=== PATIENT | female | born 1990 | race Caucasian/White ===

== ENCOUNTER → 2017-09-23 19:00 | Outpatient (CLI) | payer BC, SELFPAY ==
[2017-11-03 15:45] LABS: HPV HC, High Risk Negative; HPV Reflexed? YES, CHARGE PATIENT
== END ==
PROVIDERS: Visit Provider Obstetrics & Gynecology
DX: Z12.4 Encounter for screening for malignant neoplasm of cervix (principal)
CPT/HCPCS: 87624; 88175; G0145

== ENCOUNTER → 2018-09-29 | Outpatient (CLI) | payer BC, SELFPAY ==
[2016-09-14 07:19] VITALS: BMI 32.1
[2018-10-07 11:16] LABS: HPV APTIMA, High Risk Negative (Negative)
[2018-10-07 11:51] LABS: HPV Reflexed? YES, CHARGE PATIENT
== END | disposition home or self-care (01) ==
LOC: LABSPEC 15:29
PROVIDERS: PCP Family Medicine; Visit Provider Obstetrics & Gynecology
DX: Z12.4 Encounter for screening for malignant neoplasm of cervix (principal)
CPT/HCPCS: 87624; 88175; G0145

== ENCOUNTER → 2018-10-20 | Outpatient (CLI) | payer BC, SELFPAY ==
--- NOTE | 2018-10-20 14:36 | BI_ITS ---
MAMMOGRAPHY - BILATERAL SCREENING 3-D TOMOSYNTHESIS REASON FOR EXAM: Female, 28 years old. Bilateral Screening 3-D tomosynthesis PERTINENT HISTORY: Family history of breast cancer in mother who at age 42. TECHNIQUE: 2-D mammograms and 3-D Tomosynthesis of the breast (s) were performed. CAD was performed. COMPARISON: None. Baseline examination. FINDINGS: The breast composition is heterogeneously dense that can obscure small breast masses. Scattered benign calcifications are seen. No dense spiculated masses or suspicious microcalcifications are identified. No architectural distortion is identified. There is no skin thickening or retraction. There has been no significant change since the prior study. BI/SCREEN MAMM (CAD) W/YARIEL BILAT IMPRESSION: No mammographic signs of malignancy. Routine yearly mammograms recommended. ASSESSMENT CATEGORY: BIRADS Category 1: Negative. A letter regarding these results will be sent to the patient by the facility within 30 days. FOLLOW UP RECOMMENDATION: Yearly follow up mammogram recommended. (A) Approximately 10% of breast cancers are not detected by mammography. A normal mammogram should not delay biopsy of a clinically suspicious abnormality. Electronically Signed: Jason Love MD at 17:07 EDT , Service support ,
== END | disposition home or self-care (01) ==
LOC: OPBI 14:31
PROVIDERS: Family Provider Family Medicine; PCP Family Medicine; Referring Provider Obstetrics & Gynecology; Visit Provider Obstetrics & Gynecology
DX: Z12.31 Encounter for screening mammogram for malignant neoplasm of breast (principal); Z80.3 Family history of malignant neoplasm of breast
CPT/HCPCS: 77063; 77067

== ENCOUNTER → 2019-10-23 | Outpatient (CLI) | payer BC, SELFPAY ==
--- NOTE | 2019-10-23 13:06 | BI_ITS ---
MAMMOGRAPHY - BILATERAL SCREENING REASON FOR EXAM: Female, 29 years old. Routine annual screening examination. PERTINENT HISTORY: Mother with breast cancer. Aunt with breast cancer. TECHNIQUE: Digital bilateral breast yariel (3D mammographic acquisition) in the CC and MLO projections. 2-D mediolateral oblique (MLO) and craniocaudad (CC) views of both breasts were obtained. CAD: Full Field Digital Mammography with Computer Added Detection was performed. COMPARISON: Comparison is made with prior study dated October 20, 2018. FINDINGS: Breast Composition: The breasts are extremely dense, which lowers the sensitivity of mammography. There are no dominant masses or suspicious calcifications. No other significant abnormalities are identified. There has been no significant change since the prior study. BI/SCREEN MAMM (CAD) W/YARIEL BILAT IMPRESSION: Stable bilateral screening mammogram. Yearly follow-up mammogram recommended. (A) ASSESSMENT CATEGORY: BIRADS Category 1: Negative. A letter regarding these results will be sent to the patient by the facility within 30 days. Approximately 10% of breast cancers are not detected by mammography. A normal mammogram should not delay biopsy of a clinically suspicious abnormality. [id number] Electronically Signed: Brigido Brooks, at 14:12 EDT , Service support ,
== END | disposition home or self-care (01) ==
LOC: OPBI 13:04
PROVIDERS: PCP Family Medicine; Referring Provider Obstetrics & Gynecology; Visit Provider Obstetrics & Gynecology
DX: Z12.31 Encounter for screening mammogram for malignant neoplasm of breast (principal); Z80.3 Family history of malignant neoplasm of breast
CPT/HCPCS: 77063; 77067

== ENCOUNTER → 2020-10-17 15:28 | Outpatient (CLI) | payer BC, SELFPAY ==
[2016-09-14 07:19] VITALS: BMI 32.1
[2020-10-24 14:39] LABS: HPV Reflexed? NOT INDICATED
== END ==
PROVIDERS: PCP Family Medicine; Visit Provider Obstetrics & Gynecology
DX: Z12.4 Encounter for screening for malignant neoplasm of cervix (principal)
CPT/HCPCS: 88175; G0145

== ENCOUNTER → 2020-11-18 12:30 | Outpatient (CLI) | payer BC, SELFPAY ==
--- NOTE | 2020-11-18 12:33 | BI_ITS ---
MAMMOGRAPHY - BILATERAL SCREENING REASON FOR EXAM: Female, 30 years old. Routine annual screening examination. PERTINENT HISTORY: Grandmother with breast cancer. TECHNIQUE: Digital bilateral breast yariel (3D mammographic acquisition) in the CC and MLO projections. 2-D mediolateral oblique (MLO) and craniocaudad (CC) views of both breasts were obtained. CAD: Full Field Digital Mammography with Computer Added Detection was performed. COMPARISON: Comparison is made with prior study dated 10/23/2019 and 10/20/2018. FINDINGS: Breast Composition: The breasts are extremely dense, which lowers the sensitivity of mammography. There are no dominant masses or suspicious calcifications. No other significant abnormalities are identified. There has been no significant change since the prior study. BI/SCRN MAMM (CAD)W/YARIEL BILAT IMPRESSION: Stable bilateral screening mammogram. Yearly follow-up mammogram recommended. (A) ASSESSMENT CATEGORY: BIRADS Category 1: Negative. A letter regarding these results will be sent to the patient by the facility within 30 days. Approximately 10% of breast cancers are not detected by mammography. A normal mammogram should not delay biopsy of a clinically suspicious abnormality. [id number] Electronically Signed: Brigido Brooks MD at 13:11 EDT , Service support ,
== END ==
PROVIDERS: PCP Family Medicine; Referring Provider Obstetrics & Gynecology; Visit Provider Obstetrics & Gynecology
DX: Z12.31 Encounter for screening mammogram for malignant neoplasm of breast (principal); Z80.3 Family history of malignant neoplasm of breast
CPT/HCPCS: 77063; 77067

== ENCOUNTER → 2021-11-19 | Outpatient (CLI) | payer BC, SELFPAY ==
--- NOTE | 2021-11-19 14:14 | BI_ITS ---
MAMMOGRAPHY - BILATERAL SCREENING REASON FOR EXAM: Female, 31 years old. Routine annual screening examination. PERTINENT HISTORY: Mother with breast cancer. TECHNIQUE: Digital bilateral breast yariel (3D mammographic acquisition) in the CC and MLO projections. 2-D mediolateral oblique (MLO) and craniocaudad (CC) views of both breasts were obtained. CAD: Full Field Digital Mammography with Computer Added Detection was performed. COMPARISON: Comparison is made with prior study 11/18/2020 and 10/23/2019. FINDINGS: Breast Composition: The breasts are extremely dense, which lowers the sensitivity of mammography. There are no dominant masses or suspicious calcifications. No other significant abnormalities are identified. There has been no significant change since the prior study. BI/SCRN MAMM (CAD)W/YARIEL BILAT IMPRESSION: Stable bilateral screening mammogram. Yearly follow-up mammogram recommended. (A) ASSESSMENT CATEGORY: BIRADS Category 1: Negative. A letter regarding these results will be sent to the patient by the facility within 30 days. Approximately 10% of breast cancers are not detected by mammography. A normal mammogram should not delay biopsy of a clinically suspicious abnormality. [id number] Electronically Signed: Brigido Brooks MD at 15:12 EDT ,
== END | disposition home or self-care (01) ==
LOC: OPBI 14:12
PROVIDERS: PCP Family Medicine; Visit Provider Obstetrics & Gynecology
DX: Z12.31 Encounter for screening mammogram for malignant neoplasm of breast (principal); Z80.3 Family history of malignant neoplasm of breast
CPT/HCPCS: 77063; 77067

== ENCOUNTER → 2022-10-22 | Outpatient (CLI) | payer BC, SELFPAY ==
[2022-10-22 12:52] LABS: Cholesterol 163 mg/dL (200); Creatinine, Serum 0.86 mg/dL (0.55-1.02); EST Glomerular Filtration Rate 80 mL/min (>60); Est Glom Filt Rate - Afr Amer 97 mL/min (>60); Ferritin 31 ng/mL (8-252); High Density Lipoprotein 84 mg/dL; Triglycerides 90 mg/dL; Very Low Density Lipoprotein 18 mg/dL (5-40)
== END | disposition home or self-care (01) ==
LOC: MFPLAB 10:21
PROVIDERS: PCP Family Medicine; Visit Provider Family Medicine
DX: G43.909 Migraine, unspecified, not intractable, without status migrainosus (principal); Z13.220 Encounter for screening for lipoid disorders
CPT/HCPCS: 36415; 80061; 82565; 82728

== ENCOUNTER → 2022-11-23 | Outpatient (CLI) | payer BC, SELFPAY ==
--- NOTE | 2022-11-23 07:51 | BI_ITS ---
MAMMOGRAPHY - BILATERAL SCREENING REASON FOR EXAM: Female, 32 years old. Routine annual screening examination. PERTINENT HISTORY: Mother with breast cancer. TECHNIQUE: Digital bilateral breast yariel (3D mammographic acquisition) in the CC and MLO projections. 2-D mediolateral oblique (MLO) and craniocaudad (CC) views of both breasts were obtained. CAD: Full Field Digital Mammography with Computer Added Detection was performed. COMPARISON: Comparison is made with prior study dated November 19, 2021 and November 18, 2020. FINDINGS: Breast Composition: The breasts are extremely dense, which lowers the sensitivity of mammography. There are no dominant masses or suspicious calcifications. No other significant abnormalities are identified. There has been no significant change since the prior study. BI/SCRN MAMM (CAD)W/YARIEL BILAT IMPRESSION: Stable bilateral screening mammogram. Yearly follow-up mammogram recommended. (A) ASSESSMENT CATEGORY: BIRADS Category 1: Negative. A letter regarding these results will be sent to the patient by the facility within 30 days. Approximately 10% of breast cancers are not detected by mammography. A normal mammogram should not delay biopsy of a clinically suspicious abnormality. [id number] Electronically Signed: Brigido Brooks MD at 9:38 EDT ,
== END | disposition home or self-care (01) ==
PROVIDERS: PCP Family Medicine; Referring Provider Family Medicine; Visit Provider Family Medicine
DX: Z12.31 Encounter for screening mammogram for malignant neoplasm of breast (principal)
CPT/HCPCS: 77063; 77067

== ENCOUNTER → 2023-07-14 | Outpatient (CLI) | payer BC, SELFPAY ==
--- NOTE | 2023-07-14 15:33 | US_ITS ---
STUDY: ULTRASOUND OF THE FEMALE PELVIS - COMPLETE REASON FOR EXAM: Female, 33 years old. Break thru bleeding, pelvic pain LMP: July 09, 2023. TECHNIQUE: Transabdominal and Transvaginal TECHNICAL QUALITY: Adequate. COMPARISON: None. FINDINGS: The uterus is anteverted and is in a midline position. The uterus measures 7.8 cm x 4.1 cm x 2.3 cm. Normal uterine cervix. The endometrium measures 6 mm in thickness, and is hyperechoic. Tiny anechoic areas are seen within the endometrium. There is no demonstrated endometrial mass. Heterogeneous echotexture of the myometrium although no focal fibroid is seen. I.U.D. - The patient does not have an I.U.D. The right ovary is visualized. The right ovary measures 1.8 cm x 1.6 cm x 1.3 cm. There is no right ovarian cyst or ovarian mass. There is no visualized right adnexal mass or complex lesion. There is normal arterial and normal venous vascularity. The left ovary is visualized. The left ovary measures 2.4 cm x 2.1 cm x 1.8 cm. There is a 1.3 cm x 1.5 cm x 1.3 cm follicle in the left ovary. There is no visualized left adnexal mass or complex lesion. There is normal arterial and normal venous vascularity. There is no fluid in the cul-de-sac. The pre void volume of the bladder was 803 ml. US/Pelvic w/ Transvaginal IMPRESSION: Dominant follicle in the left ovary. Heterogeneous echotexture of the myometrium although no focal fibroid is seen. Electronically Signed: Brigido Brooks MD at 14:47 EDT ,
== END | disposition home or self-care (01) ==
PROVIDERS: PCP Family Medicine; Referring Provider Obstetrics & Gynecology; Visit Provider Obstetrics & Gynecology
DX: R10.2 Pelvic and perineal pain (principal); R93.9 Diagnostic imaging inconclusive due to excess body fat of patient
CPT/HCPCS: 76830; 76856

== ENCOUNTER 2023-08-24 06:35 | Day surgery (SDC) | payer BC, SELFPAY ==
[2023-08-24] VITALS (7 sets, daily range): BP systolic 98–109; BP diastolic 62–73; PULSE 54–100; RESP 16–18; TEMP 36.7–37; O2SAT 98–100; BMI 26.2
[2023-08-24 06:58] LABS: Internal QC Validated? YES +Cl - CLEAR BKGD; Pregnancy, Urine Negative Negative
[2023-08-24] MEDS: Lactated Ringers 1,000 ML 15 ML IV (07:00)
[2023-08-24 07:04] LABS: Hematocrit 39.9 % (37-47); Hemoglobin 12.7 g/dL (12.0-15.0); Mean Corp Hgb Conc 31.8 g/dL (32-36); Mean Corpuscular Volume 87.9 fL (81-99); Platelet Count 231 K/mm3 (150-450); RBC Distribution Width CV 12.6 % (11.6-14.6); RBC Distribution Width SD 40.8 fl (35.1-43.9); Red Blood Count 4.54 M/mm3 (4.2-5.4)
--- NOTE | 2023-08-24 08:20 | EMB_PTH ---
PATIENT: THAIS GOVEA LOC: [facility] [place] U#:[id number] AGE/SX: 33/F ROOM: RE08/24/[address]: Dr. Thais Lamb DO : 1990 BED: DIS: 08/24/2023 SPEC #: [id number] RECD: 08/24/23 10:26 STATUS: ELOY YEPEZ #: [id number] STARR: 08/24/23 08:[address]: Thais Lamb DEPT: SURGICAL PATHOLOGY RECD BY: Heidy Raman ENTERED: 08/24/23 10:57 SP TYPE: ENDOM BX/C KAYLEE DR: Dr. 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 AM/mr 08/25/2023 MICROSCOPIC DESCRIPTION Slides are reviewed. GROSS DESCRIPTION Received in fixative is one container labeled with the patient's name and designated Endometrial Curettings. The specimen consists of multiple irregular fragments of reddish- dixon soft tissue that in aggregate measure 2.0 x 1.0 x 0.1 cm. The specimen is totally submitted in one cassette. / 08/24/23 TC:5 CPT:94768
--- NOTE | 2023-08-24 08:21 | HP.PCM_ITS ---
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 Is patient in pain?: No Allergies Environmental Allergies: Uncoded [pine] Allergy (Verified 07/30/23 15:05) Hives Medications cetirizine 10 mg capsule (Zyrtec) 10 mg PO DAILY allergies 09/06/16 [History Confirmed 07/30/23] azelastine 205.5 mcg (0.15 %) nasal spray 1 spray intranasal QHS 11/19/22 [History Confirmed 07/30/23] estradiol 0.5 mg tablet 0.5 mg PO DAILY #30 tabs 11/19/22 [Rx Confirmed 07/30/23] etonogestrel 0.12 mg-ethinyl estradiol 0.015 mg/24 hr vaginal ring (NuvaRing) 1 vag ring vaginal Q4W #3 ea 11/19/22 [Rx Confirmed 07/30/23] fluticasone propionate 50 mcg/actuation nasal spray,suspension (Allergy Relief (fluticasone)) 1 spray intranasal DAILY 11/19/22 [History Confirmed 07/30/23] Post menopausal: No Patient : No : No PFSH Medical History Seasonal allergies Surgical History S/P S/P knee surgery Family History Mother Breast cancerAunt Ovarian cancerFather Prostate CAGrandfather CVA (cerebral vascular accident) Social History Smoking Status: Never smoker alcohol intake: current details: occasionally caffeine: Yes what type of physical activity do you participate in: walking, aerobics and weight training frequency: 3-4 times per week seatbelt use: always do you feel safe at home: Yes additional social history: - [facility] Ultrasound Follow Up Details: THAIS GOVEA is a 33 year old who presents for complaint of breakthrough bleeding that at times is very heavy. She uses nuvaring as directed. Ultrasound shows a hypoechoic lesion in the lining of the uterus that I believe could represent a small polyp. History 2 Elective abortions Hx Para 2 Spontaneous abortions Hx # Term Pregnancies Ectopic pregnancies Hx # Pregnancies Multiple births # of living children Past Pregnancies Del. Date Name GA/Weeks Outcome Route Bth Weight Infant Gen Labor Lgth Anesthesia Del Locatn Provider FOB Unknown [place] Unknown [place] ROS Const ROS Unobtainable: All systems reviewed & are unremarkable except as noted in H Resp Resp: Reports system reviewed and no additional complaints, except as documented; Denies cough GI GI: Reports as per HPI Psych Psych: Reports system reviewed and no additional complaints, except as documented Exam Const General: cooperative, healthy appearing, comfortable and no acute distress Resp Effort & Inspection: normal respiratory effort Skin General: no rashes or lesions noted Psych Appearance: grossly normal Speech and Movement: speech and movement normal Coding Level of Care Code Off vis,est,level 4 Diagnoses Pelvic pain R10.2 Abnormal uterine bleeding N93.9 Assessment and Plan Assessment and Plan (1) Pelvic pain: Status: Acute (2) Abnormal uterine bleeding: Status: Acute Plan suspect endometrial polyp, possibly adenomyosis based on changes in the endome trium After discussing the patient's diagnosis and treatment plan options, patient wishes to proceed with surgical management.She has decided that a hysteroscopy Dilation and curettage, possible insertion of mirena IUD to help prevent further bleeding. I have discussed with the patient the risks, benefits, and alternatives of the procedure which include but are not limited to risks of anesthesia, bleeding, infection, possible damage to bowel, bladder, or surrounding vasculature which could lead to additional surgery to evaluate any complications. Patient agrees to procedure and wishes to proceed. ACOG/uptodate references given for additional information regarding procedure.
--- NOTE | 2023-08-24 08:21 | DCINST_ITS ---
Discharge Instructions Diet Discharge Diet: No restrictions Activity Discharge Activity: Return to Normal Activity, May Shower and May Take a Tub Bath (after 1 week) May resume sexual activity in: 1-2 weeks Weight Bearing Status: Weight bearing as tolerated Lifting Restrictions: none Dressing / Incision Call your doctor if you observe: Fever of 101 or Higher, Using more than 1 pad per hour, Shortness of breath and Uncontrolled pain Follow Up Care Please Follow Up With: Mary Lamb DO When: Call [phone] to schedule appointment. Test Results: Test results from this visit will be discussed in further detail at your follow- up appointment, if applicable. Discharge Plan Admission Attending Provider: Mary Lamb Primary Care Provider: Elton Rosario Discharge Orders/Prescriptions Prescriptions: No Action azelastine 205.5 mcg (0.15 %) spray,non-aerosol 1 spray intranasal QHS Rx Instructions: administer into each nostril fluticasone propionate [Allergy Relief (fluticasone)] 50 mcg/actuation spray,suspension 1 spray intranasal DAILY Rx Instructions: administer into each nostril etonogestrel-ethinyl estradiol [NuvaRing] 0.12-0.015 mg/24 hr ring 1 vag ring vaginal Q4W Qty: 3 4RF Rx Instructions: leave in place for 3 weeks of a 4-week cycle Referrals / Follow Up: Elton Rosario MD [Primary Care Provider] - Disposition Disposition (needs filled in before D/C Order can be placed): Home, Self Care
[2023-08-24] MEDS: Lidocaine 1% (20 ml mdv) 20 ML Vial (08:31)
--- NOTE | 2023-08-24 09:24 | PCM.OPRPT ---
Problems Associated Problem List Diagnoses (1) Abnormal uterine bleeding: Report of Operation Date of Procedure: 08/24/23 Pre-Operative Diagnosis: abnormal finding of endometrium on ultraosound, menorrhagia Post-Operative Diagnosis: abnormal finding of endometrium on ultrasound, menorrhagia Surgery/Procedure Performed:: hysteroscopy dilation and curettage Description of Surgical Findings:: uterine septum Surgeon: Mary Lamb Type of Anesthesia: MAC and Topical Anesth Estimated Blood Loss (mL): 10 cc Description of Procedure: Patient was prepped and draped in a normal sterile fashion under MAC anesthesia. A weighted speculum was placed in the vagina and the anterior lip of the cervix was grasped with a single-tooth tenaculum. A paracervical block was placed with 1% lidocaine. Cervix was progressively dilated to allow passage of a 5 mm hysteroscope. The lining was fully visualized and noted to have a probable uterine septum. The uterus sounded to 6 cm initially in the midline and then to the left and right of septum measured over 8 cm. Curettage was performed and curetting's were sent to pathology. The right horn of the uterus felt very soft and felt as if any more pressure was applied could have perforated. The decision was made to not insert the IUD. All instruments were removed from the vagina and excellent hemostasis was noted. Patient was awoken and taken to recovery in stable condition. Complications none Admit VTE Documentation VTE Present on Admission: No VTE Mechan Device Prophylaxis: SCD's VTE Pharm Prophylaxis ordered?: No Multi Select Codes Urinary/Genital Urinary/Genital CPT Codes: 23257 Hysteroscopy, diagnostic and 71901 Hysteroscopy,EMC, Polypectomy
== END 2023-08-24 09:59 | disposition home or self-care (01) ==
LOC: SDC 06:35 → AC 06:36
PROVIDERS: PCP Family Medicine; Referring Provider Obstetrics & Gynecology; Visit Provider Obstetrics & Gynecology
PROC: 0UDB8ZZ Extraction of Endometrium, Via Natural or Artificial Opening Endoscopic (ICD-10-PCS; CPT 58558; principal; 2023-08-24 08:10)
DX: N85.01 Benign endometrial hyperplasia (principal)
CPT/HCPCS: 58558; 00952; 81025; 85027; 86850; 86900; 86901; 88305; J7120; J2405

== ENCOUNTER → 2023-11-23 | Outpatient (CLI) | payer BC, SELFPAY ==
[2023-11-26 17:07] LABS: HPV APTIMA, High Risk Negative (Negative)
== END | disposition home or self-care (01) ==
LOC: LABSPEC 10:35
PROVIDERS: PCP Family Medicine; Referring Provider Obstetrics & Gynecology; Visit Provider Obstetrics & Gynecology
DX: Z12.4 Encounter for screening for malignant neoplasm of cervix (principal)
CPT/HCPCS: 87624; 88175; G0145

== ENCOUNTER → 2023-12-01 | Outpatient (CLI) | payer BC, SELFPAY ==
--- NOTE | 2023-12-01 14:41 | BI_ITS ---
MAMMOGRAPHY - BILATERAL SCREENING 3-D TOMOSYNTHESIS REASON FOR EXAM: Female, 33 years old. screening mammogram PERTINENT HISTORY: No significant family history. TECHNIQUE: 2-D mammograms and 3-D Tomosynthesis of the breast (s) were performed. CAD was performed. COMPARISON: 11/23/2022 FINDINGS: The breast composition is heterogeneously dense that can obscure small breast masses. Scattered benign calcifications are seen. No dense spiculated masses or suspicious microcalcifications are identified. No architectural distortion is identified. There is no skin thickening or retraction. There has been no significant change since the prior study. BI/SCRN MAMM (CAD)W/YARIEL BILAT IMPRESSION: No mammographic signs of malignancy. Routine yearly mammograms recommended. ASSESSMENT CATEGORY: BIRADS Category 1: Negative. A letter regarding these results will be sent to the patient by the facility within 30 days. FOLLOW UP RECOMMENDATION: Yearly follow up mammogram recommended. (A) Approximately 10% of breast cancers are not detected by mammography. A normal mammogram should not delay biopsy of a clinically suspicious abnormality. Electronically Signed: Yohan Marino MD at 14:05 EDT ,
== END | disposition home or self-care (01) ==
LOC: OPBI 14:41
PROVIDERS: PCP Family Medicine; Referring Provider Obstetrics & Gynecology; Visit Provider Obstetrics & Gynecology
DX: Z12.31 Encounter for screening mammogram for malignant neoplasm of breast (principal)
CPT/HCPCS: 77063; 77067

== ENCOUNTER → 2024-11-28 | Outpatient (CLI) | payer BC, SELFPAY | END | disposition home or self-care (01) | LOC: LABSPEC 10:46 | PROVIDERS: PCP Family Medicine; Visit Provider Obstetrics & Gynecology | DX: N76.0 Acute vaginitis (principal) | CPT/HCPCS: 87070; 87205 ==

== ENCOUNTER → 2024-12-19 | Outpatient (CLI) | payer BC, SELFPAY ==
--- NOTE | 2024-12-19 13:19 | MRI_ITS ---
PROCEDURE: BREAST BILATERAL W/O AND W 12/19/2024 REASON FOR EXAM: 34-year-old female presents for high-risk screening breast MRI due to FAMILY HISTORY OF BREAST CANCER AND DENSE BREASTS. TECHNIQUE: BREAST BILATERAL W/O AND W CONTRAST: 14 mL of Clariscan COMPARISON: Mammograms 12/01/2023, 11/23/2022, 11/19/2021 FINDINGS: TISSUE DENSITY: The breasts are heterogeneously dense, which may obscure small masses. Background Parenchymal Enhancement: Mild RIGHT Breast: No suspicious mass or non-mass enhancement. LEFT Breast: No suspicious mass or non-mass enhancement. Other Findings: No suspicious axillary or internal mammary lymph nodes. Visualized portions of the thoracic and abdominal viscera are unremarkable. MRI/Breast Bilateral W/O and W IMPRESSION: There is no MR evidence of malignancy in either breast. OVERALL FINAL ASSESSMENT BI-RADS 1: NEGATIVE RECOMMENDATION: Routine annual follow-up in 1 Year Reading Location: [id number]
== END | disposition home or self-care (01) ==
LOC: MRI 13:18
PROVIDERS: PCP Family Medicine; Referring Provider Obstetrics & Gynecology; Visit Provider Obstetrics & Gynecology
DX: Z12.31 Encounter for screening mammogram for malignant neoplasm of breast (principal); Z80.3 Family history of malignant neoplasm of breast; R92.30 Dense breasts, unspecified
CPT/HCPCS: 77049; A9581; A4216; C8908

== ENCOUNTER 2025-03-20 09:39 | Day surgery (SDC) | payer BC, SELFPAY ==
[2025-03-09 11:13] LABS: Hematocrit 42.0 % (37-47); Hemoglobin 13.2 g/dL (12.0-15.0); Mean Corp Hgb Conc 31.4 g/dL (32-36); Mean Corpuscular Volume 89.0 fL (81-99); Mean Platelet Vol. 10.6 fl (6.2-12.0); Platelet Count 232 K/mm3 (150-450); RBC Distribution Width CV 12.0 % (11.6-14.6); RBC Distribution Width SD 39.1 fl (35.1-43.9); Red Blood Count 4.72 M/mm3 (4.2-5.4); White Blood Count 6.9 K/mm3 (4.4-11.0)
[2025-03-09 11:52] LABS: Magnesium 2.7 mg/dL (1.5-2.2)
[2025-03-20] VITALS (11 sets, daily range): BP systolic 113–128; BP diastolic 66–77; PULSE 70–90; RESP 16–18; TEMP 36.5–37.1; O2SAT 97–100; BMI 26.9
[2025-03-20] MEDS: Scopolamine 1mg/72hr Patch 1 PATCH TD (10:09)
[2025-03-20] MEDS: Lactated Ringers 1,000 ML 40 ML IV (10:11)
[2025-03-20 10:15] LABS: Internal QC Validated? YES +Cl - CLEAR BKGD; Pregnancy, Urine Negative Negative; Record Kit Lot#,Urine Preg 980607
--- OUTSIDE RECORDS SUMMARY | 2025-03-20 10:32 | XMS RPT_ITS | CCD ---
Author Organization [facility] Care Team Providers Care External Relations Manager Name Role Phone Freddie, Hilton Unavailable Unavailable Freddie, Hilton Unavailable Unavailable Freddie, Hilton Unavailable Unavailable Abraham, Elton Unavailable Unavailable Abraham, Elton Unavailable Unavailable Dr. Elton Rosario Primary Care Provider [phone] Dr. Elton Rosario Referring Provider Dr. Mary Lamb Attending Provider Dr. Elton Rosario Primary Care Provider Dr. Elton Rosario Referring Provider [phone] Mary Lamb Attending Provider [phone] Dr. Mary Lamb Referring Provider Dr. Mary Lamb Other Provider Dr. Elton Rosario MD Primary Care Provider [phone] Dr. Elton Rosario MD Referring Provider Dr. Mary Lamb DO Attending Provider Dr. Mary Lamb DO Referring Provider Mary Lamb Referring Mary Nathan Attending Xander Rosario, Elton Primary Care Unavailable Mary Lamb Attending Xander Rosario, Elton Primary Care Unavailable Mary Lamb Attending Xander Rosario, Elton Primary Care Unavailable Mary Lamb Referring Unavailalberto e Mary Lamb Attending Xander e Abraham, Elton Referring Unavailable Rosario, Elton Primary Care Unavailable Allergies Allergy Classification Reported Allergen(s) Allergy Type Date of Onset Reaction(s) Facility (1 source) Environmental Allergies: Uncoded; Translations: [Environmental Allergies: Uncoded] Propensity to adverse reactions (disorder) [facility] Repository Medications Current Medications Medication Drug Class(es) Dates Sig (Normalized) Sig (Original) Etonogestrel-Ethinyl Estradiol (Nuvaring) 0.12-0.015 mg/24 hr ring (9 sources) Start: 11-28-2024 Etonogestrel-Ethiny l Estradiol (Nuvaring) 0.12-0.015 mg/24 hr ring Active 1 NMA VAGINAL every 4 weeks 3 November 28, 2024 9:21am leave in place for 4 weeks and replace (take continuously) Start: 06-01-2024 End: 11-28-2024 Etonogestrel-Ethinyl Estradi ol (Nuvaring) 0.12-0.015 mg/24 hr ring Discontinued 1 NMA VAGINAL every 4 weeks 3 June 01, 2024 4:48pm November 28, 2024 9:22am leave in place for 3 weeks of a 4-week cycle Start: 09-23-2023 End: 06-01-2024 Etonogestrel-Ethinyl Estradi ol (Nuvaring) 0.12-0.015 mg/24 hr ring Discontinued 1 NMA VAGINAL every 4 weeks 3 September 23, 2023 4:56pm June 01, 2024 4:49pm leave in place for 3 weeks of a 4-week cycle Completed/Discontinued Medications Medication Drug Class(es) Dates Sig (Normalized) Sig (Original) azelastine hydrochloride 0.206 mg/actuat metered dose nasal spray (6 sources) Histamine-1 Receptor Antagonist Start: 11-19-2022 End: 11-28-2024 Azelastine 205.5 mcg (0.15 %) spray,non-aerosol Discontinued 1 NMA INTRANASAL AT BEDTIME November 19, 2022 12:00am November 28, 2024 9:22am administer into each nostril Start: 11-19-2022 take 1 spray(s) nasa l route at bedtime Azelastine Active 1 SPRAY INTRANASAL AT BEDTIME November 19, 2022 12:00am administer into each nostril cetirizine hydrochloride 10 mg oral capsule (8 sources) Histamine-1 Receptor Antagonist Start: 09-06-2016 End: 08-18-2023 take 1 capsule by mouth once daily Cetirizine (Zyrtec) 10 MG capsule Discontinued 10 mg PO DAILY September 06, 2016 12:00am August 18, 2023 1:15pm allergies docusate sodium 100 mg oral capsule (8 sources) Start: 09-14-2016 End: 11-19-2022 take 1 capsule by mouth twice daily as needed for constipation Docusate Sodium (Colace) 100 MG capsule Discontinued 100 mg PO TWICE DAILY NEEDED as needed for Constipation 60 September 14, 2016 12:00am November 19, 2022 9:25am estradiol 0.5 mg oral tablet (6 sources) Estrogen Start: 11-19-2022 End: 08-18-2023 take 1 tablet by mouth once daily Estradiol 0.5 mg tablet Discontinued 0.5 mg PO DAILY 30 November 19, 2022 12:00am August 18, 2023 1:15pm take for 3 days during ring free days or when experience breakthrough bleeding. 21 day ethinyl estradiol 0.062371 mg/hr / etonogestrel 0.005 mg/hr vaginal system (15 sources) Progestin, Estrogen Start: 11-19-2022 End: 11-23-2023 Etonogestrel-Ethi nyl Estradiol (Nuvaring) 0.12-0.015 mg/24 hr ring Discontinued 1 NMA VAGINAL every 4 weeks 1 September 08, 2023 12:00am September 23, 2023 4:57pm leave in place for 3 weeks of a 4-week cycle Start: 11-19-2022 End: 11-19-2022 Etonogestrel-Ethinyl Estradi ol (Nuvaring) 0.12-0.015 mg/24 hr ring Active 1 VAG RING VAGINAL every 4 weeks November 19, 2022 9:54am leave in place for 3 weeks of a 4-week cycle fluticasone propionate 0.05 mg/actuat metered dose nasal spray (6 sources) Corticosteroid Start: 11-19-2022 End: 11-28-2024 take 50 ug nasal route once daily Fluticasone Propionate (Allergy Relief (Fluticasone)) 50 mcg/actuation spray,suspension Discontinued 1 NMA INTRANASAL DAILY November 19, 2022 12:00am November 28, 2024 9:22am administer into each nostril Start: 11-19-2022 take 1 spray(s) nasa l route once daily Fluticasone Propionate (Allergy Relief (Fluticasone)) 50 mcg/actuation spray,suspension Active 1 SPRAY INTRANASAL DAILY November 19, 2022 12:00am administer into each nostril oxyCODONE hydrochloride 5 mg oral tablet (8 sources) Opioid Agonist Start: 09-14-2016 End: 11-19-2022 take 5-10 mg by mouth every six hours as needed for pain Oxycodone 5 MG tablet Discontinued 5 - 10 mg PO EVERY 6 HOURS NEEDED as needed for Mod-Severe Pain (4-10/10) 30 0 September 14, 2016 12:00am November 19, 2022 9:25am Vit,Gunner 33-Knig-Zyxwq (Prenatabs Fa) 1 TABLET tablet (1 source) Start: 11-12-2014 End: 11-19-2022 take 1 tablet by mouth once daily Vit,Gunner 63-Xrri-Qnkxg (Prenatabs Fa) 1 TABLET tablet Discontinued 1 {tbl} PO DAILY November 12, 2014 12:00am November 19, 2022 9:25am Vit,Kcod22-Uonj-Mfing (Prenatabs Fa) 1 TABLET tablet (7 sources) Start: 11-12-2014 End: 11-19-2022 take 1 tablet by mouth once daily Vit,Ehbk90-Qliq-Bup ic (Prenatabs Fa) 1 TABLET tablet Discontinued 1 {tbl} PO DAILY November 12, 2014 12:00am November 19, 2022 9:25am Start: 11-12-2014 End: 11-19-2022 take 1 tablet by mouth once daily Vit,Umhw28-Myao-Pndsu (Prenatab s Fa) 1 TABLET tablet Discontinued 1 TABLET PO DAILY November 12, 2014 12:00am November 19, 2022 9:25am Start: 11-12-2014 take 1 tablet by cesar th once daily Vit,Tzql83-Rttk-Huavr (Prenatab s Fa) 1 TABLET tablet Active 1 TABLET PO DAILY November 12, 2014 12:00am Problems Active Problems Problem Classification Problem Date Documented Da te Episodic/Chronic Abdominal pain (6 sources) Pain in pelvis; Translations: [Pelvic and perineal pain] 07-09-2023 Episodic Genitourinary congenital anomalies (3 sources) Congenital uterine anomaly; 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, other specified] 11-28-2024 Chronic Menstrual disorders (6 sources) Menorrhagia; Translations: [Excessive and frequent menstruation with regular cycle] 09-08-2023 Chronic Other female genital disorders (5 sources) Abnormal uterine bleeding; Translations: [Abnormal uterine and vaginal bleeding, unspecified] 07-09-2023 Chronic Other female genital disorders (2 sources) Abnormal uterine and vaginal bleeding, unspecified; Translations: [Unspecified disorders of menstruation and other abnormal bleeding from female genital tract] 07-30-2023 Chronic Other screening for suspected conditions (not mental disorders or infectious disease) (1 source) Encounter for screening mammogram for malignant neoplasm of breast; Translations: [Encounter for screening mammogram for malignant neoplasm of breast] Onset: 12-26-2024 Episodic Other upper respiratory disease (2 sources) Chronic rhinitis; Translations: [Chronic rhinitis] Onset: 01-25-2018 Chronic Other upper respiratory disease (6 sources) Seasonal allergy; Translations: [Other seasonal allergic rhinitis] 11-19-2022 Chronic Residual codes; unclassified (3 sources) Family history of breast cancer; Translations: [Family history of malignant neoplasm of breast] 11-23-2023 Episodic Past or Other Problems Problem Classification Problem Date Documented Da te Episodic/Chronic Inflammatory diseases of female pelvic organs (1 source) Acute vaginitis; Translations: [Acute vaginitis] Onset: 12-05-2024 Episodic Residual codes; unclassified (1 source) Family history of malignant neoplasm of breast; Translations: [Family history of malignant neoplasm of breast] Onset: 11-28-2024 Episodic Results Test Name Value Interpretation Reference Range Facility Magnetic resonance imaging r eportOrdered By: Sherin Hinton on 12-22-2024 Study report [facility] Imaging Services [address] [place], [place] [id number] Breast Bilateral W/O and W MR#: [id number] Acct: [id number] Name: MARY GOVEA V Rep #: [id number] : 1990 F 34 From: Radha Hinton MD PCP: Dr. Elton Rosario MD Status: REG CLI Study:Breast Bilateral W/O and W Date of Exam : 12/19/24 Exam# [id number] Ordering Dr: Mary Zambrano DO PROCEDURE: BREAST BILATERAL W/O AND W 12/19/2024 REASON FOR EXAM: 34-year-old female presents for high-risk screening breast MRI due to FAMILY HISTORY OF BREAST CANCER AND DENSE BREASTS. TECHNIQUE: BREAST BILATERAL W/O AND W CONTRAST: 14 mL of Clariscan COMPARISON: Mammograms 12/01/2023, 11/23/2022, 11/19/2021 FINDINGS: TISSUE DENSITY: The breasts are heterogeneously dense, which may obscure small masses. Background Parenchymal Enhancement: Mild RIGHT Breast: No suspicious mass or non-mass enhancement. LEFT Breast: No suspicious mass or non-mass enhancement. Other Findings: No suspicious axillary or internal mammary lymph nodes. Visualized portions of the thoracic and abdominal viscera are unremarkable. MRI/Breast Bilateral W/O and W IMPRESSION: There is no MR evidence of malignancy in either breast. OVERALL FINAL ASSESSMENT BI-RADS 1: NEGATIVE RECOMMENDATION: Routine annual follow-up in 1 Year Reading Location: [facility] CC: Dr. Elton Rosario MD; Dr. Mary Lamb DO ~ Tower Watchman: Signed [facility] Breast Bilateral W/O and Won 12-19-2024 Breast Bilateral W/O and W [facility] [address] [place] [id number] Breast Bilateral W/O and W MR#: [id number] Acct: [id number] Name: MARY GOVEA V Rep #: [id number] : 1990 F 34 From: Sherin Hinton MD PCP: Dr. Elton Rosario MD Status: REG CLI Study: Breast Bilateral W/O and W Date of Exam: 12/19 Exam# [id number] Ordering Dr: Mary Lamb DO PROCEDURE: BREAST BILATERAL W/O AND W 12/19/2024 REASON FOR EXAM: 34-year-old female presents for high-risk screening breast MRI due to FAMILY HISTORY OF BREAST CANCER AND DENSE BREASTS. TECHNIQUE: BREAST BILATERAL W/O AND W CONTRAST: 14 mL of Clariscan COMPARISON: Mammograms 12/01/2023, 11/23/2022, 11/19/2021 FINDINGS: TISSUE DENSITY: The breasts are heterogeneously dense, which may obscure small masses. Background Parenchymal Enhancement: Mild RIGHT Breast: No suspicious mass or non-mass enhancement. LEFT Breast: No suspicious mass or non-mass enhancement. Other Findings: No suspicious axillary or internal mammary lymph nodes. Visualized portions of the thoracic and abdominal viscera are unremarkable. MRI/Breast Bilateral W/O and W IMPRESSION: There is no MR evidence of malignancy in either breast. OVERALL FINAL ASSESSMENT BI-RADS 1: NEGATIVE RECOMMENDATION: Routine annual follow-up in 1 Year Reading Location: [facility] CC: Dr. Elton Rosario MD; Dr. Mary Lamb DO Tower Watchman: Signed Normal [facility] Genital Culture Comprehensiv cristian 11-30-2024 [facility] Reason for Exam: vaginitis Normal vaginal jules isolated. No yeast, Gardnerella, Neisseria or beta-hemolytic Streptococcus isolated. Normal [facility] Comment on above: Performed By: #### M 100.1999, M100.3200 #### [facility] [address] [place], [place], [id number] Genital cultureOrdered By: Rajeev Byrnes on 11-28-2024 Source specific culture Neisseria or beta-hemolytic Streptococcus isolated. [facility] Gram Stainon 11-28-2024 [facility] Reason for Exam: vaginitis Gram Stain 1+ White Blood Cells 4+ Gram positive rods No Gram negative diplococci Score = 0 Interpretation: 0-3 Normal, 4-6 Intermediate, 7-10 Positive BV Normal [facility] Comment on above: Performed By: #### M 100.1999, M100.3200 #### [facility] [address] [place], [place], [id number] Gram stainOrdered By: Erick Byrnes on 11-28-2024 Microscopic observation Gram stain Nom (Unsp spec) [facility] Hand Leather Trimmer Office Visit Reporton 11-28-2024 Hand Leather Trimmer Office Visit Report [facility] [address], [address] [place] [address] OFFICE VISIT Date of Service: 11/28/24 MR#: [id number] Acct: [id number] Name: MARY GOVEA V Rep #: [id number] : 1990 Provider: Dr. 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 Required: No Is patient in pain?: No Allergies Environmental Allergies: Uncoded (pine) Allergy (Verified 11/28/24 09:05) Hives Medications ???Medication ???Instructions ???Recorded ???Confirmed ???Type NuvaRing 0.12 mg-0.015 mg/24 hr 1 vag ring vaginal Q4W #3 ea 11/2811/28/24 Rx vaginal (etonogestrel-ethinyl estradiol) Post menopausal: No Patient : No : No PFSH Medical History Dysmenorrhea Menorrhagia Non-smoker Alcohol use Seasonal allergies Surgical History History of hysteroscopy ( 08/24/23) S/P S/P knee surgery Family History Mother Breast cancer Aunt Ovarian cancer Father Prostate CA Grandfather CVA (cerebral vascular accident) Social History Smoking Status: Never smoker alcohol intake: current details: occasionally caffeine: Yes what type of physical activity do you participate in: walking, aerobics and weight training frequency: 5-6 times per week seatbelt use: always do you feel safe at home: Yes additional social history: - Elvira History 2 Elective abortions Hx Para 2 Spontaneous abortions Hx # Term Pregnancies Ectopic pregnancies Hx # Pregnancies Multiple births # of living children Past Pregnancies Del. Date Name GA/Weeks Outcome Route Bth Weight Gen Labor Lgth Anesthesia Del Locatn Provider FOB Unknown Saeid Unknown Nabor HPI Encounter for routine gynecological examination Details: MARY GOVEA is a 34 year old who presents for annual exam. Last PAP: 11/23/23 History of abnormal PAP: no Last mammogram: 12/01/23- dense breasts. it was mentioned to her by radiology that mri may be better. mom had breast cancer age 37 History of abnormal mammogram: dense tissue Colon cancer screening: not due Other preventative health care screenings: followed by pcp The patient has been using the NuvaRing for contraception and has been advised to use it continuously to reduce headaches and bleeding. She has a history of a uterine septum, which preclude s the use of an intrauterine device (IUD). The patient reports a family history of breast cancer, with her mother being diagnosed at age 37. She has dense breast tissue, which reduces the sensitivity of mammograms, and there is a consideration for MRI screening. The patient also has a family history of ovarian cancer, with her maternal aunt diagnosed in her mid-30s. There is a discussion about the potential benefits of genetic testing for the BRCA gene. The patient reports occasional vaginal odor, which may be due to bacterial vaginosis, and is advised to use boric acid suppositories to balance pH levels. Attestation: Documentation on this patient encounter was supported using ambient scribe technology/ voice AI technology. The patient consented to recording for the purpose of documenting the encounter. Provider reviewed content of the generated note prior to signature. Female Reproductive History Cycle Length: 21-35 Bleeding Duration: 5 Questions: metrorrhagia: No, sexually active: Yes, dyspareunia: No and PCB: No Menopausal Symptoms: No hot flashes, No night sweats, No weight change, No mood changes, No difficulty concentrating, No sleep problems and No change in libido ROS Const Constitutional: Reports as per HPI; Denies fatigue, increased appetite, poor appetite, night sweats, weight gain or weight loss Cardio Card: Denies chest pain Resp Resp: Denies cough or dyspnea GI GI: Reports as per HPI; Denies abdominal pain, bloating, constipation, nausea or vomiting : Reports as per HPI and other; Denies difficulty voiding, dysuria, hematuria, hot flashes, nipple discharge, pelvic pain, prolapse symptoms, urinary frequency, urinary incontinence, urinary urgency, vaginal discharge, vaginal dryness, vaginal odor or vaginal pruritus Skin Skin/Breast: Denies changing lesions, breast mass, breast pain, breast skin changes or nipple discharge Psych Psych: Denies anxiety, change in libido, depression or difficulty c (more content not included)... Normal [facility] Basophil percentageOrdered B y: Mary Byrnes on 08-24-2023 Hemoglobin (Bld) [Mass/Vol] 12.7 g/dL 12.0-15.0 [facility] WBC (Bld) [#/Vol] 7.0 10*3/uL 4.4-11.0 [facility] Determination of erythrocyte mean corpuscular volume (MCV)Ordered By: Mary Byrnes on 08-24-2023 MCV (RBC) [Entitic vol] 87.9 fL 81-99 [facility] Erythrocyte distribution wid th ratioOrdered By: Mary Byrnes on 08-24-2023 Erythrocyte distribution width (RBC) [Ratio] 12.6 % 11.6-14.6 [facility] Erythrocyte distribution wid th standard deviationOrdered By: Mary Byrnes on 08-24-2023 Erythrocyte distribution width (RBC) [Entitic vol] 40.8 fL 35.1-43.9 [facility] Hematocrit Auto (Bld) [Volum e fraction]Ordered By: Mary Byrnes on 08-24-2023 Hematocrit (Bld) [Volume fraction] 39.9 % 37-47 [facility] Laboratory - Chemistry and C hemistry - challengeOrdered By: Mary Byrnes on 08-24-2023 HCG ( test) Ql (U) Negative [facility] Comment on above: Very dilute urine sp ecimens, as indicated by a low specificgravity, may not contain treasury representative levels of hCG. If is still suspected, a first morning urinespecimen should be collected 48 hours later and tested. Laboratory - Hematology and Cell countsOrdered By: Mary Byrnes on 08-24-2023 MCH (RBC) [Entitic mass] 28.0 pg 27.0-32.0 [facility] MCHC (RBC) [Mass/Vol] 31.8 g/dL 32-36 [facility] Platelet mean volume (Bld) [Entitic vol] 10.0 fL 6.2-12.0 [facility] Platelets (Bld) [#/Vol] 231 10*3/uL 150-450 [facility] RBC Auto (Bld) [#/Vol]Ordere d By: Mary Byrnes on 08-24-2023 RBC (Bld) [#/Vol] 4.54 10*6/uL 4.2-5.[address] [facility] Basophil percentageOrdered B y: Elton Rosario on 10-22-2022 Cholesterol [Mass/Vol] 163 mg/dL <200 [facility] Comment on above: <200 mg/dL Desirable 200-240 mg/dL Borderline >240 mg/dL High Risk Triglyceride [Mass/Vol] 90 mg/dL <199 [facility] Comment on above: The drugs N-Acetylcy steine and Metamizole may falsely depress this assay.Serum Triglycerides Reference Interval Normal <150 mg/dL Borderline high 150 - 199 mg/dL High 200 - 499 mg/dL Very High > or = 500 mg/dL No Panel InformationOrdered By: Elton Rosario on 10-22-2022 Estimated GFR (MDRD) Amer 97 mL/min >60 [facility] Comment on above: GFR Calc Estimated GFR (MDRD) Non-Af Amer 80 mL/min >60 [facility] Comment on above: Non- GFR Calc Serum or plasma cholesterol in HDL measurement (mass/volume)Ordered By: Elton Rosario on 10-22-2022 Cholesterol in HDL [Mass/Vol] 84 mg/dL >40 [facility] Comment on above: The drugs N-Acetylcy steine and Metamizole may falsely depress this assay. Reference Range HDL <40 mg/dL Low HDL Cholesterol HDL >or= 60 mg/dL High HDL Cholesterol Serum or plasma cholesterol in VLDL measurement (mass/volume)Ordered By: lEton Rosario on 10-22-2022 Cholesterol in VLDL [Mass/Vol] 18 mg/dL 5-40 [facility] Serum or plasma creatinine m easurement (mass/volume)Ordered By: Elton Rosario on 10-22-2022 Creatinine [Mass/Vol] 0.86 mg/dL 0.55-1.02 [facility] Comment on above: The validity of the calculated GFR & GFRAA in patients over 70 years has not been determined. Clinical correlation is essential. Serum or plasma ferritin maksim surement (mass/volume)Ordered By: Elton Rosario on 10-22-2022 Ferritin [Mass/Vol] 31 ng/mL 8-[address] [facility] Serum or plasma low density lipoprotein (LDL) cholesterol measurement (mass/volume)Ordered By: Elton Rosario on 10-22-2022 Cholesterol in LDL [Mass/Vol] 61 mg/dL 0-130 [facility] SACRUM/COCCYX, MIN 2 VIEWSon 05-08-2019 SACRUM/COCCYX, MIN 2 VIEWS Patient Name: MARY GOVEA STUDY: SACRUM/COCCYX, MIN 2 VIEWS;; 05/08/2019 3:48 pm INDICATION: M99.04 S33.8XXA. COMPARISON: None. ACCESSION NUMBER(S): [id number] ORDERING CLINICIAN: BAR BAIRD FINDINGS: SACRUM AND COCCYX-AP, LATERAL No fracture is seen in the sacrum or coccyx. The coccyx is angulated anteriorly. IMPRESSION: No fracture. Electronically signed by: SYLVIA MANZANO [facility] ([facility] ) MARY GOVEA V ([id number]) 1990 F Date Time Provider Department 10/17/18 2:00 PM DOUG LUCIA (NELA) WSTR During your visit today, we recorded the following information about you: Temperature Pulse Respiration Blood pressure 99.7 degrees 98/minute 16/minute 104/64 Weight 62.6 kg Doug KhariSOFÍA.NELA 10/17/2018 3:05 PM Signed Subjective HPI HPI Mary Govea is a 28 year old female who presents today for CC of sore throat. This started 4 days ago. Has tried otc medicatoin. Symptoms are worsened by nothing. Risk factors no sick exposures. Highest temp 100 .Patient presents with: Neck Pain: neck pain, SURESH, fatigue and loss of appetite-had throat pain and lymph nodes hurt PAST MEDICAL HISTORY Diagnosis Date - Migraine PAST SURGICAL HISTORY Procedure Laterality Date - ORTHOPEDICS SURGERY HX ALLERGIES Patient has no known allergies. MEDICATIONS Etonogestrel-Ethinyl Estradiol (NUVARING) 0.12-0.015 mg/24 hr vaginal ring Use 1 Each vaginally as directed. Insert vaginally and leave in place for 3 consecutive weeks, then remove for 1 week. acetaminophen (TYLENOL) 325 mg tablet Take 2 tablets by mouth every 6 hours as needed. azelastine (ASTELIN,ASTEPRO) 0.1% nasal spray Use 1 [place] in each nostril twice daily. zofjpn-kxvyfzwxvir-Ym Cl-NaHCO3 137 mcg-50 mcg- 0.9 % ksps Use 1 [place] in the nose twice daily. mometasone (NASONEX) 50 mcg/actuation nasal spray Use 2 Sprays in the nose once daily. No family history on file. Social History Tobacco Use - Smoking status: Never Smoker - Smokeless tobacco: Never Used Substance Use Topics - Alcohol use: Yes - Drug use: No Review of Systems Constitutional: Positive for fever and malaise/fatigue. HENT: Positive for sore throat. Negative for congestion, ear pain and nosebleeds. Respiratory: Negative for cough, shortness of breath and wheezing. Musculoskeletal: Negative for neck pain. Skin: Negative for itching and rash. Objective Blood pressure 104/64, pulse 98, temperature 37.6 ?C (99.7 ?F), temperature source Tympanic, resp. rate 16, weight 62.6 kg (138 lb), SpO2 98 %, unknown if currently . Physical Exam Constitutional: She is oriented to person, place, and time and well-developed, well-nourished, and in no distress. Non-toxic appearance. She does not have a sickly appearance. No distress. HENT: Head: Normocephalic and atraumatic. Right Ear: Hearing, tympanic membrane, external ear and ear canal normal. Left Ear: Hearing, tympanic membrane, external ear and ear canal normal. Nose: Nose normal. Mouth/Throat: Uvula is midline and mucous membranes are normal. Oropharyngeal exudate and posterior oropharyngeal erythema present. No posterior oropharyngeal edema or tonsillar abscesses. Eyes: Pupils are equal, round, and reactive to light. Conjunctivae and lids are normal. Right eye exhibits no discharge. Left eye exhibits no discharge. No scleral icterus. Neck: Trachea normal and normal range of motion. Neck supple. Cardiovascular: Normal rate, regular rhythm and normal heart sounds. Pulmonary/Chest: Effort normal and breath sounds normal. Lymphadenopathy: She has cervical adenopathy. Right cervical: Superficial cervical adenopathy present. Left cervical: Superficial cervical adenopathy present. Neurological: She is alert and oriented to person, place, and time. Skin: No rash noted. She is not diaphoretic. ASSESSMENT/PLAN: 1. Sore throat - ICD9: 462, ICD10: J02.9 - suspect viral - Rapid Strep negative in the office today and Throat culture pending - Discussed supportive care treatment with fluids, rest and analgesia. - The patient should follow up in 3-5 days if symptoms persist or worsen - Call back if drooling, increased temperature, symptoms of dehydration and/or still sick in one week - RAPID STREP TEST B/O - GROUP A STREPTOCOCCUS BY PCR Prescription instructions reviewed with patient as applicable. Patient advised if symptoms do not improve or if symptoms worsen sooner, to contact the office for further evaluation by their primary care physician. Potential red flag symptoms discussed with the patient. Reviewed appropriate action plan to take if red flag symptoms occur. Patient agreeable to treatment plan. Doug Lucia APRN.HOT PUNCH PRESS OPERATOR Referring Provider: SELF [200] Allergies As of Date: 10/17/2018 (No Known Allergies) Date Reviewed: 10/17/2018 Reviewed by: Diamante Kirkpatrick LPN - Fully Assessed Reason for Visit: Neck Pain [135] Cmt: neck pain, SURESH, fatigue and loss of appetite-had throat pain and lymph nodes hurt Primary Visit Diagnosis:Sore throat [J02.9] Order(s):RAPID STREP TEST B/O [5594471] Order #: [id number] GROUP A STREPTOCOCCUS BY PCR [SQGASPCR] Order #: [id number] Prescriptions as of 10/17/2018 Sig: ETONOGESTREL-ETHINYL ESTRADIO* Use 1 Each vaginally as direc* ACETAMINOPHEN 325 MG TABLET Take 2 tablets by mouth every* AZELASTINE 137 MCG (0.1 %) NA* Use 1 [place] in each nostril t* AZELASTINE 137 MCG-FLUTICASON* Use 1 [place] in the nose twice* MOMETASONE 50 MCG/ACTUATION N* Use 2 Sprays in the nose once* Problem List As Of Date 10/17/2018 Noted Resolved Intractable back pain [M54.9] INVALID FOR* Encounter Status:Closed by DOUG LUCIA CNP on 10/17/18 [facility] Group A Strep by PCRon 10-17 GAS Specimen Source Throat Swab [facility] Comment on above: Performed By: #### G ASPCR #### [facility] [address] [address] Group A Strep PCR Negative [facility] Comment on above: Result Comment: This test was developed and its performance characteristics determined by [facility]'s [facility] [place] ([place]). It has not been cleared or approved by the FDA. [facility] is regulated under CLIA as qualified to perform high complexity testing. This test is used for clinical purposes. It should not be regarded as investigational or for research. Performed By: #### G ASPCR #### [facility] [address] [address] PROGRESSon 10-17-2018 Protein mass conc HNO ID: [id number] Author: Doug (Nela) Service: ? Author Type: Nurse Practitioner Type: Progress Notes Filed: 10/17/2018 3:05 PM Note Text: Subjective HPI HPI Mary Govea is a 28 year old female who presents today for CC of sore throat. This started 4 days ago. Has tried otc medicatoin. Symptoms are worsened by nothing. Risk factors no sick exposures. Highest temp 100 .Patient presents with: Neck Pain: neck pain, SURESH, fatigue and loss of appetite-had throat pain and lymph nodes hurt PAST MEDICAL HISTORY Diagnosis Date - Migraine PAST SURGICAL HISTORY Procedure Laterality Date - ORTHOPEDICS SURGERY HX ALLERGIES Patient has no known allergies. MEDICATIONS Etonogestrel-Ethinyl Estradiol (NUVARING) 0.12-0.015 mg/24 hr vaginal ring Use 1 Each vaginally as directed. Insert vaginally and leave in place for 3 consecutive weeks, then remove for 1 week. acetaminophen (TYLENOL) 325 mg tablet Take 2 tablets by mouth every 6 hours as needed. azelastine (ASTELIN,ASTEPRO) 0.1% nasal spray Use 1 [place] in each nostril twice daily. gdiosj-wnbngmxmcvy-Xv Cl-NaHCO3 137 mcg-50 mcg- 0.9 % ksps Use 1 [place] in the nose twice daily. mometasone (NASONEX) 50 mcg/actuation nasal spray Use 2 Sprays in the nose once daily. No family history on file. Social History Tobacco Use - Smoking status: Never Smoker - Smokeless tobacco: Never Used Substance Use Topics - Alcohol use: Yes - Drug use: No Review of Systems Constitutional: Positive for fever and malaise/fatigue. HENT: Positive for sore throat. Negative for congestion, ear pain and nosebleeds. Respiratory: Negative for cough, shortness of breath and wheezing. Musculoskeletal: Negative for neck pain. Skin: Negative for itching and rash. Objective Blood pressure 104/64, pulse 98, temperature 37.6 ?C (99.7 ?F), temperature source Tympanic, resp. rate 16, weight 62.6 kg (138 lb), SpO2 98 %, unknown if currently . Physical Exam Constitutional: She is oriented to person, place, and time and well-developed, well-nourished, and in no distress. Non-toxic appearance. She does not have a sickly appearance. No distress. HENT: Head: Normocephalic and atraumatic. Right Ear: Hearing, tympanic membrane, external ear and ear canal normal. Left Ear: Hearing, tympanic membrane, external ear and ear canal normal. Nose: Nose normal. Mouth/Throat: Uvula is midline and mucous membranes are normal. Oropharyngeal exudate and posterior oropharyngeal erythema present. No posterior oropharyngeal edema or tonsillar abscesses. Eyes: Pupils are equal, round, and reactive to light. Conjunctivae and lids are normal. Right eye exhibits no discharge. Left eye exhibits no discharge. No scleral icterus. Neck: Trachea normal and normal range of motion. Neck supple. Cardiovascular: Normal rate, regular rhythm and normal heart sounds. Pulmonary/Chest: Effort normal and breath sounds normal. Lymphadenopathy: She has cervical adenopathy. Right cervical: Superficial cervical adenopathy present. Left cervical: Superficial cervical adenopathy present. Neurological: She is alert and oriented to person, place, and time. Skin: No rash noted. She is not diaphoretic. ASSESSMENT/PLAN: 1. Sore throat - ICD9: 462, ICD10: J02.9 - suspect viral - Rapid Strep negative in the office today and Throat culture pending - Discussed supportive care treatment with fluids, rest and analgesia. - The patient should follow up in 3-5 days if symptoms persist or worsen - Call back if drooling, increased temperature, symptoms of dehydration and/or still sick in one week - RAPID STREP TEST B/O - GROUP A STREPTOCOCCUS BY PCR Prescription instructions reviewed with patient as applicable. Patient advised if symptoms do not improve or if symptoms worsen sooner, to contact the office for further evaluation by their primary care physician. Potential red flag symptoms discussed with the patient. Reviewed appropriate action plan to take if red flag symptoms occur. Patient agreeable to treatment plan. Doug Lucia APRN.HOT PUNCH PRESS OPERATOR [facility] ED NOTEon 09-12-2018 ED NOTE HNO ID: [id number] Author: Meri Manley) BILLY De La Rosa Service: Emergency Medicine Author Type: Registered Nurse Type: ED Notes Filed: 09/11/2018 10:13 PM Note Text: Dc instr to fu w pmd, return prn. Verb und. AANDO, wdp, resps unlabored, speech clear, improved symptoms, steady upright gait. [facility] ED NOTEon 09-11-2018 ED NOTE HNO ID: [id number] Author: Meri Manley) BILLY De La Rosa Service: Emergency Medicine Author Type: Registered Nurse Type: ED Notes Filed: 09/11/2018 9:39 PM Note Text: Pt resting quietly on cart with eyes closed, resps even and unlabored, relaxed expression and posture. Awakens to verbal stimulus. Denies nausea, reports improved pain [facility] ED NOTE HNO ID: [id number] Author: Meri WhittRn) BILLY De La Rosa Service: Emergency Medicine Author Type: Registered Nurse Type: ED Notes Filed: 09/11/2018 8:39 PM Note Text: Patient informed: the name of medication, why we are giving it, possible side effects, what they may expect to feel, and was offered a chance to ask questions, prior to the administration of toradol, zofran, benadryl [facility] ED NOTE HNO ID: [id number] Author: Chinyere (Rn) BILLY Rosario Service: Emergency Medicine Author Type: Registered Nurse Type: ED Notes Filed: 09/11/2018 8:29 PM Note Text: Headache progressively worse during today. + n/v, photophobia, feels like a sledgehammer is whacking me To rm 6 via w/c. + lg emesis upon arrival. [facility] ED PROV NOTEon 09-11-2018 Protein mass conc HNO ID: [id number] Author: Dot Pate DO Service: Emergency Medicine Author Type: Physician Type: ED Provider Notes Filed: 09/11/2018 10:06 PM Note Text: ED Provider Note Patient Name: Mary Govea SERVICE DATE: 09/11/18 History Patient presents with: Headache Nausea AND Vomiting Mary Govea is a 28 year old female with history of migraines who presents with a frontal headache. Patient has had similar episodes of headache in the past. - Patient is not . Patient was exposed to nothing. - Symptoms began this afternoon. Onset was gradual. - Severity: 02/02 - Timing: constant - Quality: stabbing - Pain is exacerbated by bright lights. - Pain is not exacerbated by rest. - Symptoms are associated with light sensitivity, nausea, photophobia and vomiting. - Symptoms are not associated with blurry vision, chills, dizziness/vertigo, double vision, fever, generalized body numbness, left-sided body numbness, right-sided body numbness, generalized body tingling, left-sided body tingling, right-sided body tingling, neck stiffness and head injury. - Improved by nothing. - Not improved by anything. Patient presents with a frontal headache, gradually started this afternoon when she was outside. She has seasonal allergies as well. She states she has not had a migraine this bad in awhile. She had a migraine last week. She states she thinks her migraines are more hormonal. She just took her Nuvaring out yesterday. She denies fever, head injury, neck stiffness, chest pain, shortness of breath, diarrhea, vision changes. PAST MEDICAL HISTORY Diagnosis Date - Migraine PAST SURGICAL HISTORY Procedure Laterality Date - ORTHOPEDICS SURGERY HX No family history on file. Social History Tobacco Use - Smoking status: Never Smoker - Smokeless tobacco: Never Used Substance and Sexual Activity - Alcohol use: Yes - Drug use: No - Sexual activity: Not on file ALLERGIES No Known Allergies Review of Systems Constitutional: Negative for chills and fever. HENT: Negative for sore throat and trouble swallowing. Eyes: Positive for photophobia. Negative for pain, discharge, redness and visual disturbance. Respiratory: Negative for cough and shortness of breath. Cardiovascular: Negative for chest pain. Gastrointestinal: Positive for nausea and vomiting. Negative for abdominal pain and diarrhea. Genitourinary: Negative for dysuria and flank pain. Musculoskeletal: Negative for neck pain and neck stiffness. Skin: Negative for rash and wound. Allergic/Immunologic: Negative for immunocompromised state. Neurological: Positive for headaches. Negative for dizziness, seizures, syncope, facial asymmetry, speech difficulty, weakness and numbness. Psychiatric/Behaviora l: Negative for agitation and confusion. Physical Exam BP 106/71 Pulse 62 Temp (Src) 98 (Temporal) Resp 16 Ht 5' 3 (1.60m) Wt 135 lb (61.2kg) SpO2 100% BMI 23.92 kg/(m2). O2 Therapy: Room Air Physical Exam Constitutional: She is oriented to person, place, and time. She appears well-developed and well-nourished. HENT: Head: Normocephalic and atraumatic. Mouth/Throat: Oropharynx is clear and moist. Eyes: Pupils are equal, round, and reactive to light. EOM are normal. No scleral icterus. Cardiovascular: Normal rate, regular rhythm and intact distal pulses. Pulmonary/Chest: Effort normal and breath sounds normal. Abdominal: Soft. Normal appearance and bowel sounds are normal. Neurological: She is alert and oriented to person, place, and time. She has normal strength. No cranial nerve deficit or sensory deficit. GCS eye subscore is 4. GCS verbal subscore is 5. GCS motor subscore is 6. Skin: Skin is warm and dry. Capillary refill takes less than 2 seconds. No rash noted. She is not diaphoretic. No cyanosis or erythema. No pallor. Psychiatric: She has a normal mood and affect. Her behavior is normal. Nursing note and vitals reviewed. Diagnostic Testing ED Labs Ordered and Reviewed - No data to display Procedures ED Course / Clinical Impression Clinical Impressions as of Sep 11 2204 Migraine without status migrainosus, not intractable, unspecified migraine type MDM / Disposition / Plan Patient medicated for her headache. On re-evaluation, headache much better, she rates it 3/10 and wants to go home. She does not want her urine checked and states she is not . UA / urine preg were cancelled per patient request. Instructed the patient on reasons to return to the ED, otherwise follow up with primary. She is agreeable to plan. Disposition The patient was discharged. Counseled patient and mother regarding suspected diagnosis. As well as the need for follow-up. Discharged home with verbal and written instructions. They were instructed to return as needed for persistent or worsening symptoms or any new concerns. Condition at disposition is stable and improved. SIGNATURE: Dot Pate, DO Dot Pate, 09/11/182205 [facility] CT Maxillofacial w/o Contras ton 01-25-2018 CT Maxillofacial w/o Contrast Patient Name: MARY GOVEA CT Exam Date/Time 01/25/2018 08:50:[address] Maxillofacial w/o Contrast Ordering Physician HILTON SALAZAR Accession Number [id number] CPT4 Codes 13137 () Reason For Exam ALLERGIC RHINITIS DUE TO POLLEN Report CT SINUSES: CLINICAL INDICATION: Headache and sinusitis TECHNIQUE: Contiguous transaxial images were performed through the paranasal sinuses with coronal reconstruction. Dose reduction was employed with automated exposure control. COMPARISON: None. FINDINGS: Minor mucosal thickening is noted at the base left maxillary sinus with thickness in the range of up to 0.2 cm. Remaining paranasal sinuses are clear. The turbinates are symmetrical. No expansile or destructive change of the bony beasley of the paranasal sinuses is noted. The septum is deviated to the left at its midportion and a septal spur measuring up to 0.5 cm is noted. The orbits are normal. IMPRESSION: Very minimal degree of mucosal thickening in the left maxillary sinus. Report Dictated on Final Dictating Physician: MD CARVALHO JEFFREY Signed Date and Time: 01/25/2018 10:15 am Signed by: MD CARVALHO JEFFREY Transcribed Date and Time: 01/25/2018 10:17 [facility] Office Visit (WALK[place] ) JEFERSONAUNDREAMARY ([id number]) 1990 F Date Time Provider Department 11/09/17 9:15 AM JULIANNA BENÍTEZ) ROBERT During your visit today, we recorded the following information about you: Temperature Pulse Blood pressure Weight 97.7 degrees 70/minute 104/61 63.5 kg Julianna Benítez APRN.CNP 11/09/2017 9:38 AM Signed Subjective HPI HPI Mary Govea is a 27 year old female who presents today for CC of 4th toe on her right foot is painful with some bloody drainage This started yesterday. She does not recall injury. Symptoms are worsened by walking she has tried topical neosporin ACTIVE PROBLEM LIST Intractable Back Pain BP 104/61 Pulse 70 Temp 36.5 ?C (97.7 ?F) (Tympanic) Wt 63.5 kg (140 lb) BMI 24.80 kg/m? ALLERGIES No Known Allergies Current Outpatient Prescriptions: acetaminophen (TYLENOL) 325 mg tablet Take 2 tablets by mouth every 6 hours as needed. Disp: Rfl: azelastine (ASTELIN,ASTEPRO) 0.1% nasal spray Use 1 [place] in each nostril twice daily. Disp: Rfl: aswijk-sdonbkqvccz-Yg Cl-NaHCO3 137 mcg-50 mcg- 0.9 % ksps Use 1 [place] in the nose twice daily. Disp: Rfl: mometasone (NASONEX) 50 mcg/actuation nasal spray Use 2 Sprays in the nose once daily. Disp: Rfl: No current facility-administered medications for this visit. Review of Systems Constitutional: Negative for chills, fever and malaise/fatigue. Gastrointestinal: Negative for nausea. Musculoskeletal: Negative for falls. Skin: Negative for itching and rash. Objective Physical Exam Constitutional: She is oriented to person, place, and time and well-developed, well-nourished, and in no distress. No distress. HENT: Head: Normocephalic and atraumatic. Eyes: Conjunctivae and EOM are normal. Pupils are equal, round, and reactive to light. Pulmonary/Chest: Effort normal. No respiratory distress. Neurological: She is alert and oriented to person, place, and time. Gait normal. GCS score is 15. Skin: Skin is warm and dry. No rash noted. She is not diaphoretic. There is erythema (mild noted to the lateral side of the 4th toe on the right foot. There is some bloody drainage noted in the lateral corner of the nailbed,.). Psychiatric: Affect and judgment normal. ASSESSMENT/PLAN: 1. Infection of nail bed of toe of right foot - ICD9: 681.11, ICD10: L03.031 - No lymphangetic streaking, this was defined for patient to watch for and to seek medical care immediately if appears - Encouraged epsom salt soaks 2-3 times a day, 15-20 minutes and if worsens in the next 24 hours start: - AMOXICILLIN 875 MG-POTASSIUM CLAVULANATE 125 MG TABLET - if not better, f/u with podiatry LYNNE Nicholson APRN.CNP 11/09/2017 9:24 AM Signed ASSESSMENT/PLAN: 1. Infection of nail bed of toe of right foot - ICD9: 681.11, ICD10: L03.031 - No lymphangetic streaking, this was defined for patient to watch for and to seek medical care immediately if appears - Encouraged epsom salt soaks 2-3 times a day, 15-20 minutes - AMOXICILLIN 875 MG-POTASSIUM CLAVULANATE 125 MG TABLET - if not better, f/u with podiatry Referring Provider: SELF [200] Allergies As of Date: 11/09/2017 (No Known Allergies) Date Reviewed: 11/09/2017 Reviewed by: [facility] [place] - Fully Assessed Reason for Visit: Corntoma [1027] Cmt: possible infected RT 4th toe Reason For Visit History Recorded Primary Visit Diagnosis:Infection of nail bed of toe of right foot [L03.031] Order(s):amoxicillin- clavulanic acid (AUGMENTIN) 875-125 mg per tabletTake 1 tablet by mouth twice daily for 10 days.Disp: 20 tabletRfl: 0 Prescriptions as of 11/09/2017 Sig: ACETAMINOPHEN 325 MG TABLET Take 2 tablets by mouth every* AZELASTINE 137 MCG (0.1 %) NA* Use 1 [place] in each nostril t* AZELASTINE 137 MCG-FLUTICASON* Use 1 [place] in the nose twice* MOMETASONE 50 MCG/ACTUATION N* Use 2 Sprays in the nose once* AMOXICILLIN 875 MG-POTASSIUM * Take 1 tablet by mouth twice * Problem List As Of Date 11/09/2017 Noted Resolved Intractable back pain [M54.9] INVALID FOR* Other instructions from your clinician: ASSESSMENT/PLAN: 1. Infection of nail bed of toe of right foot - ICD9: 681.11, ICD10: L03.031 - No lymphangetic streaking, this was defined for patient to watch for and to seek medical care immediately if appears - Encouraged epsom salt soaks 2-3 times a day, 15-20 minutes - AMOXICILLIN 875 MG-POTASSIUM CLAVULANATE 125 MG TABLET - if not better, f/u with podiatry Prescriptions ordered this encounter Disp Refills Start End AMOXICILLIN 875 MG-POTASSIUM CLAVULA* 20 t* 0 11/09/2017 11/19/2017 Route: ORAL Sig: Take 1 tablet by mouth twice daily for 10 days. Medications Discontinued During This Encounter promethazine (PHENERGAN) 25 mg tablet 28 t* 0 06/05/2017 11/09/2017 Class: Print RX Route: ORAL Sig: Take 1 tablet by mouth every 6 hours as needed for Nausea/Vomiting. Patient not taking: Reported on 11/09/2017 Disc: Course of therapy completed predniSONE (DELTASONE) 20 mg tablet 18 t* 0 06/05/2017 11/09/2017 Class: Print RX Sig: Take 3 pills by mouth daily for 3 days, then 2 pills by mouth daily for 3 days, then 1 pill by mouth daily for 3 days Patient not taking: Reported on 11/09/2017 Disc: Course of therapy completed Encounter Status:Closed by JULIANNA BENÍTEZ on 11/09/17 [facility] PROGRESSon 11-09-2017 Protein mass conc HNO ID: [id number] Author: Julianna Raza ([employer]) [place] Service: (none) Author Type: Nurse Practitioner Type: Progress Notes Filed: 11/09/2017 9:38 AM Note Text: Subjective HPI HPI Mary Govea is a 27 year old female who presents today for CC of 4th toe on her right foot is painful with some bloody drainage This started yesterday. She does not recall injury. Symptoms are worsened by walking she has tried topical neosporin ACTIVE PROBLEM LIST Intractable Back Pain BP 104/61 Pulse 70 Temp 36.5 ?C (97.7 ?F) (Tympanic) Wt 63.5 kg (140 lb) BMI 24.80 kg/m? ALLERGIES No Known Allergies Current Outpatient Prescriptions: acetaminophen (TYLENOL) 325 mg tablet Take 2 tablets by mouth every 6 hours as needed. Disp: Rfl: azelastine (ASTELIN,ASTEPRO) 0.1% nasal spray Use 1 [place] in each nostril twice daily. Disp: Rfl: vveycn-ibuextsjraa-Ft Cl-NaHCO3 137 mcg-50 mcg- 0.9 % ksps Use 1 [place] in the nose twice daily. Disp: Rfl: mometasone (NASONEX) 50 mcg/actuation nasal spray Use 2 Sprays in the nose once daily. Disp: Rfl: No current facility-administered medications for this visit. Review of Systems Constitutional: Negative for chills, fever and malaise/fatigue. Gastrointestinal: Negative for nausea. Musculoskeletal: Negative for falls. Skin: Negative for itching and rash. Objective Physical Exam Constitutional: She is oriented to person, place, and time and well-developed, well-nourished, and in no distress. No distress. HENT: Head: Normocephalic and atraumatic. Eyes: Conjunctivae and EOM are normal. Pupils are equal, round, and reactive to light. Pulmonary/Chest: Effort normal. No respiratory distress. Neurological: She is alert and oriented to person, place, and time. Gait normal. GCS score is 15. Skin: Skin is warm and dry. No rash noted. She is not diaphoretic. There is erythema (mild noted to the lateral side of the 4th toe on the right foot. There is some bloody drainage noted in the lateral corner of the nailbed,.). Psychiatric: Affect and judgment normal. ASSESSMENT/PLAN: 1. Infection of nail bed of toe of right foot - ICD9: 681.11, ICD10: L03.031 - No lymphangetic streaking, this was defined for patient to watch for and to seek medical care immediately if appears - Encouraged epsom salt soaks 2-3 times a day, 15-20 minutes and if worsens in the next 24 hours start: - AMOXICILLIN 875 MG-POTASSIUM CLAVULANATE 125 MG TABLET - if not better, f/u with podiatry Julianna Benítez APRN.HOT PUNCH PRESS OPERATOR [facility] LUMBOSACRAL SPINE 2 OR 3 VIE WSon 06-04-2017 LUMBOSACRAL SPINE 2 OR 3 VIEWS Performed at [facility] APPROVED BY: Hilton Kuo MD EXAM TITLE: LUMBAR SPINE DATE: 06/04/2017 11:00 COMPARISON: None. CLINICAL INDICATION/HISTORY: Lower back pain TECHNIQUE: AP and lateral views of the lumbar spine and a cone-down view of the lumbosacral junction are presented. FINDINGS: There are 5 nonrib-bearing lumbar vertebral bodies. No spondylolisthesis. No disc space narrowing or widening. No lytic or blastic osseous lesions. No evidence of a fracture or traumatic malalignment. IMPRESSION: Unremarkable lumbar spine. [facility] Vital Signs Date Time Vital Sign Value Performing Clinician [facility] 11-28-2024 09:07-0400 Body height 160.[address] Elton Rosario MD Work Phone: [facility] 11-28-2024 09:05-0400 Body mass index (BMI) [Ratio] 26.8 kg/m2 Dr. Elton Rosario MD Work Phone: [facility] 11-28-2024 09:05-0400 Body weight 68.[address] Elton Rosario MD Work Phone: [facility] 11-28-2024 09:05-0400 Diastolic blood pressure 68 mm[Hg] Dr. Elton Rosario MD Work Phone: [facility] 11-28-2024 09:05-0400 Systolic blood pressure 132 mm[Hg] Dr. Elton Rosario MD Work Phone: [phone] [place] [address] 08-24-2023 09:05-0400 Body temperature 98.1 [degF] Dr. Elton Rosario Work Phone: [facility] 08-24-2023 09:05-0400 Diastolic blood pressure 73 mm[Hg] Dr. Elton Rosario Work Phone: [phone] [address] 08-24-2023 09:05-0400 Heart rate 100 /min Dr. Elton Rosario Work Phone: [phone] [place] [address] 08-24-2023 09:05-0400 Respiratory rate 16 /min Dr. Elton Rosario Work Phone: [phone] [address] 08-24-2023 09:05-0400 SaO2% (BldA) [Mass fraction] 100 % Dr. Elton Rosario Work Phone: [phone] [address] 08-24-2023 09:05-0400 Systolic blood pressure 109 mm[Hg] Dr. Elton Rosario Work Phone: [phone] [place] [address] 08-24-2023 06:54-0400 Body height 160.[address] Elton Rosario Work Phone: [phone] [place] [address] 08-24-2023 06:54-0400 Body mass index (BMI) [Ratio] 26.2 kg/m2 Dr. Elton Rosario Work Phone: [phone] [place] [address] 08-24-2023 06:54-0400 Body weight 67.[address] Elton Rosario Work Phone: [phone])[phone] [address] 07-30-2023 15:09-0400 Body mass index (BMI) [Ratio] 26.7 kg/m2 Dr. Elton Rosario Work Phone: [phone] [place] [address] 07-30-2023 15:09-0400 Body weight 68.[address] Elton Rosario Work Phone: [facility] 07-30-2023 15:09-0400 Diastolic blood pressure 72 mm[Hg] Dr. Elton Rosario Work Phone: [facility] 07-30-2023 15:09-0400 Systolic blood pressure 118 mm[Hg] Dr. Elton Rosario Work Phone: [facility] 11-19-2022 09:16-0400 Body height 160.[address] Elton Rosario Work Phone: [facility] 11-19-2022 09:16-0400 Body mass index (BMI) [Ratio] 26.6 kg/m2 Dr. Elton Rosario Work Phone: [facility] 11-19-2022 09:16-0400 Body weight 68.[address] Elton Rosario Work Phone: [facility] 11-19-2022 09:16-0400 Diastolic blood pressure 71 mm[Hg] Dr. Elton Rosario Work Phone: [facility] 11-19-2022 09:16-0400 Systolic blood pressure 114 mm[Hg] Dr. Elton Rosario Work Phone: [facility] Encounters Encounter Date Encounter Type Care Provider Facility Start: 03-20-2025 ambulatory Mary Nguyen cility:[facility] Start: 12-19-2024 End: 12-19-[address] Elton Rosaroi MD Work Phone: [facility] Start: 12-19-2024 End: 12-19-[address] Mary Lamb DO [facility] Work Phone: Start: 12-19-2024 End: 12-19-2024 ambulatory Mary Lamb Facility:[facility] Start: 11-28-2024 End: 11-28-[address] Elton Rosario MD Work Phone: -[facility] Start: 11-28-2024 End: 11-28-[address] Mary Lamb DO -[facility] Work Phone: Start: 11-28-2024 End: 11-28-[address] Mary Lamb DO [facility] Work Phone: Start: 11-28-2024 End: 11-28-[address] Mary Lamb DO [facility] Start: 11-28-2024 End: 11-28-[address] Elton Rosario MD Work Phone: -[facility] Start: 11-28-2024 End: 11-28-2024 ambulatory Mary Lamb Facility:[facility] Start: 08-24-2023 Non-patient / Non-visit Dr. Alonzo Rosario Work Phone: [facility] Start: 08-24-2023 End: 08-24-2023 Admission to same day surgery center Dr. Elton Rosario Work Phone: [facility] Start: 08-24-2023 End: 08-24-[address] Elton Rosario Work Phone: [facility] Work Phone: Start: 07-30-2023 End: 07-30-[address] Elton Rosario Work Phone: [facility] Work Phone: Start: 07-14-2023 End: 07-14-2023 ambulatory [facility] Work Phone: Start: 07-14-2023 End: 07-14-2023 Patient encounter procedure [facility] Work Phone: Start: 11-23-2022 End: 11-23-[address] Elton Rosario Work Phone: [facility] Work Phone: Start: 11-23-2022 End: 11-23-[address] Elton Rosario Work Phone: [facility] Work Phone: Start: 11-19-2022 End: 11-19-[address] Elton Rosario Work Phone: [facility] Work Phone: Start: 10-22-2022 End: 10-22-2022 ambulatory [facility] Work Phone: Start: 10-22-2022 End: 10-22-2022 Patient encounter procedure [facility] Start: 11-19-2021 End: 11-19-2021 Patient encounter procedure [facility] Start: 01-25-2018 Patient encounter [facility] Start: 01-11-2018 Patient encounter [facility] Procedures Date Procedure Procedure Detail Performing Clinician Start: 12-19-2024 MRI of bilateral joseline asts with contrast Dr. Elton Rosario MD Work Phone: Start: 11-28-2024 Gram stain microscopy Marie Rosario MD Work Phone: Start: 11-28-[address] Elton Rosario MD Work Phone: Start: 08-24-[address] Elton rushing Work Phone: Start: 07-14-2023 Pelvic echography Start: 11-23-2022 Screening mammography Marie Rosario Work Phone: Start: 11-19-2021 Screening mammography Plan of Treatment Date Care Activity Detail Author Start: 08-24-2023 Patient discharge [facility] Start: 08-24-2023 Procedure discontinued [facility] Start: 08-24-2023 Ambulation without limitation [facility] Start: 08-24-2023 Medical regimen orde rs management [facility] Start: 08-24-2023 Medication education [facility] Start: 08-24-2023 Taking patient vital signs [facility] Start: 08-24-2023 Vital signs measurements [facility] Start: 08-24-2023 [facility] MG Breast - bilateral Screening [facility] MR Breast - bilatera l WO contrast [facility] Patient referral [facility] Work Phone: Payers Date Payer Category Payer Self-pay [id number] 2015 Unknown [id number] 2014 Private Health Insurance [id number] 1988 Unknown [id number] 1988 Unknown [id number] Unknown Unknown [facility] [id number] Unknown [id number] Unknown [id number] Unknown [id number] Unknown [id number] Social History Date Type Detail Facility Start: 09-14-2016 End: 08-18-2023 Tobacco smoking status NHIS Unknown if ever smoked [facility] Start: 1990 Sex Assigned At Female [facility] Start: 11-28-2024 Tobacco smoking status NHIS Never smoked tobacco (finding) [facility] NEGATED: Highlighted row [facility] Goals Date Patient Goal Desired Activity /State Mental Status Date Assessment Result Facility 08-24-2023 Cognitive function Voice/Name [facility] Work Phone: Evaluation note 11-28-2024 Note Date & Type Note Facility 11-28-2024 Evaluation note Diagnosis Onset Date Resolution Encounter for routine gynecological examination noneactive November 28, 2024 9:04am [facility] Work Phone: Procedure note 08-24-2023 Note Date & Type Note Facility 08-24-2023 Procedure note [facility] Discharge summary Note Date & Type Note Facility Discharge summary Note Date/Time August 24, 2023 8:21am [facility] Medical Records Department [address] [place] [address] Instructions for Home/Discharge Instructions 08/24/23 0821 MR#: [id number] Acct: [id number] Name: MARY GOVEA V Rep #:[id number] : 1990 33 From: Mary Lamb DO PCP: Dr. Elton Rosario MD Status[place] [place]charge Instructions Diet Discharge Diet: No restrictions Activity Discharge Activity: Return to Normal Activity, May Shower and May Take a Tub Bath (after 1 week) May resume sexual activity in: 1-2 weeks Weight Bearing Status: Weight bearing as tolerated Lifting Restrictions: none Dressing / Incision Call your doctor if you observe: Fever of 101 or Higher, Using more than 1 pad per hour, Shortness of breath and Uncontrolled pain Follow Up Care Please Follow Up With: Mary Lamb DO When: Call [phone] to schedule appointment. Test Results: Test results from this visit will be discussed in further detail at your follow-up appointment, if applicable. Discharge Plan Admission Attending Provider: Mary Lamb Primary Care Provider: Elton Rosario Discharge Orders/Prescriptions Prescriptions: No Action azelastine 205.5 mcg (0.15 %) spray,non-aerosol 1 spray intranasal QHS Rx Instructions: administer into each nostril fluticasone propionate [Allergy Relief (fluticasone)] 50 mcg/actuation spray,suspension 1 spray intranasal DAILY Rx Instructions: administer into each nostril etonogestrel-ethinyl estradiol [NuvaRing] 0.12-0.015 mg/24 hr ring 1 vag ring vaginal Q4W Qty: 3 4RF Rx Instructions: leave in place for 3 weeks of a 4-week cycle Referrals / Follow Up: Elton Rosario MD [Primary Care Provider] - Disposition Disposition (needs filled in before D/C Order can be placed): Home, Self Care 08/24/23 0821<Electronically signed by Mary aLmb DO>Mary Lamb DO CC: Dr. Elton Rosario MD ~ Signed [facility] Work Phone: Evaluation note Note Date & Type Note Facility Evaluation note No assessment information availa ble [facility] Work Phone: Evaluation note Note Date & Type Note Facility Evaluation note Diagnosis Onset Date Encounter for routine gyneco logical examination noneactive [facility] Work Phone: Evaluation note Note Date & Type Note Facility Evaluation note Diagnosis Onset Date Abnormal uterine bleeding ac pauma Pelvic pain acute Abnormal uterine bleeding ac [facility] Work Phone: Evaluation note Note Date & Type Note Facility Evaluation note Diagnosis Onset Date Resolution Encounter for routine gynecological examination noneactive November 28, 2024 9:04am [facility] Work Phone: History and physical note Note Date & Type Note Facility History and physical note Note Date/Time August 24, 2023 8:21am [facility] Medical Records Department [address] [place] [address] History & Physical Exam 08/24/23 0821 MR#: [id number] Acct: [id number] Name: MARY GOVEA V Rep #:[id number] : 1990 33 From: Mary Lamb DO PCP: Dr. 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 Marketing Required: No Is patient in pain?: No Allergies Environmental Allergies: Uncoded [pine] Allergy (Verified 07/30/23 15:05) Hives Medications cetirizine 10 mg capsule (Zyrtec) 10 mg PO DAILY allergies 09/06/16 [History Confirmed 07/30/23] azelastine 205.5 mcg (0.15 %) nasal spray 1 spray intranasal QHS 11/19/22 [History Confirmed 07/30/23] estradiol 0.5 mg tablet 0.5 mg PO DAILY #30 tabs 11/19/22 [Rx Confirmed 07/30/23] etonogestrel 0.12 mg-ethinyl estradiol 0.015 mg/24 hr vaginal ring (NuvaRing) 1 vag ring vaginal Q4W #3 ea 11/19/22 [Rx Confirmed 07/30/23] fluticasone propionate 50 mcg/actuation nasal spray,suspension (Allergy Relief (fluticasone)) 1 spray intranasal DAILY 11/19/22 [History Confirmed 07/30/23] Post menopausal: No Patient : No : No PFSH Medical History Seasonal allergies Surgical History S/P S/P knee surgery Family History Mother Breast cancerAunt Ovarian cancerFather Prostate CAGrandfather CVA (cerebral vascular accident) Social History Smoking Status: Never smoker alcohol intake: current details: occasionally caffeine: Yes what type of physical activity do you participate in: walking, aerobics and weight training frequency: 3-4 times per week seatbelt use: always do you feel safe at home: Yes additional social history: - [facility] Ultrasound Follow Up Details: MARY GOVEA is a 33 year old who presents for complaint of breakthroughbleeding that at times is very heavy. She uses nuvaring as directed. Ultrasound shows a hypoechoic lesion in the lining of the uterus that I believe could represent a small polyp. History 2 Elective abortions Hx Para 2 Spontaneous abortions Hx # Term Pregnancies Ectopic pregnancies Hx # Pregnancies Multiple births # of living children Past Pregnancies Del. Date Name GA/Weeks Outcome Route Bth Weight Gen Labor Lgth Anesthesia Del Locatn Provider FOB Unknown [place] Unknown Nabor ROS Const ROS Unobtainable: All systems reviewed & are unremarkable except as noted in H Resp Resp: Reports system reviewed and no additional complaints, except as documented; Denies cough GI GI: Reports as per HPI Psych Psych: Reports system reviewed and no additional complaints, except as documented Exam Const General: cooperative, healthy appearing, comfortable and no acute distress Resp Effort & Inspection: normal respiratory effort Skin General: no rashes or lesions noted Psych Appearance: grossly normal Speech and Movement: speech and movement normal Coding Level of Care Code Off vis,est,level 4 Diagnoses Pelvic pain R10.2 Abnormal uterine bleeding N93.9 Assessment and Plan Assessment and Plan (1) Pelvic pain: Status: Acute (2) Abnormal uterine bleeding: Status: Acute Plan suspect endometrial polyp, possibly adenomyosis based on changes in the endometrium After discussing the patient's diagnosis and treatment plan options, patient wishes to proceed with surgical management.She has decided that a hysteroscopy Dilation and curettage, possible insertion of mirena IUD to help prevent furtherbleeding. I have discussed with the patient the risks, benefits, and alternatives of the procedure which include but are not limited to risks of anesthesia, bleeding, infection, possible damage to bowel, bladder, or surrounding vasculature which could lead to additional surgery to evaluate any complications. Patient agrees to procedure and wishes to proceed. ACOG/uptodate references given for additional information regarding procedure. 08/24/23 0821 <Electronically signed by Mary Lamb DO> Cosigner Signature (if applicable): CC: Dr. Elton Rosario MD; Dr. Mary Lamb DO~ Signed [facility] Work Phone: Reason for referral (narrative) Note Date & Type Note Facility Reason for referral (narrative) No reason for referral information available [facility] Work Phone: Summary Purpose Family History No Family History Records Found Relationship Condition Age at Onset Recorded Date/T linda mother Malignant neoplasm of breast Unknown aunt Malignant neoplasm of ovary Unknown father Malignant neoplasm of prostate Unknown grandfather Cerebrovascular accident (CVA) Unknown Advance Directives No Advanced Directives Records Found Advance Directive Response Recorded Date/ Time Living Will Yes September 14, 2016 7 :33am Power of Rover Tender Yes September 14, 2016 7:33am Advance Directive Response Recorded Date/ Time Name of Medical Power of Rover Tender ELVIRA GOVEA August 18, 2023 1:20pm Living Will Yes August 18, 2023 1:20pm Power of Rover Tender Yes August 17 1:20pm Chief Complaint and Reason for Visit Chief Complaint SCREENING Chief Complaint Annual (NECKTIE TURNER) SCREENING Reason for Visit Encounter for routin e gynecological examination Chief Complaint AUB, PELVIC PAIN Chief Complaint AUB, PELVIC PAIN Ultrasound Follow Up Hysteroscopy,Dilation and Curettage Hysteroscopy,Dilation and Curettage Reason for Visit Abnormal uterine ble eding Pelvic pain Abnormal uterine bleeding Chief Complaint Admit Date Annual (NECKTIE TURNER) November 28, 2024 9:0 4am Reason for Visit Admit Date Encounter for routine gynecological exam ination November 28, 2024 9:04am Chief Complaint Admit Date Annual (NECKTIE TURNER) November 28, 2024 9:0 4am FAMILY HX BREAST CANCER & DENSE BREASTS December 19, 2024 1:17pm Additional Source Comments INFORMATION SOURCE (unrecogn ized section and content) DATE CREATED AUTHOR 10/18/2017 [facility] DATE CREATED AUTHOR AUTHOR'S ORGANIZ ATION 02/24/2018 [facility] DATE CREATED AUTHOR AUTHOR'S ORGANIZ ATION 10/19/2018 [facility] DATE CREATED AUTHOR AUTHOR'S ORGANIZ ATION 05/12/2019 [facility] DATE CREATED AUTHOR AUTHOR'S ORGANIZ ATION 03/07/2025 [facility] Goals (unrecognized section and content) Goals may be documented in a n alternate sectionGoals may be documented in an alternate sectionGoals may be documented in an alternate sectionGoals may be documented in an alternate sectionGoals may be documented in an alternate sectionGoals may be documented in an alternate sectionGoals may be documented in an alternate section Care Teams (unrecognized sec tion and content) Team Status: Active Member Role Status Dates Dr. Elton Rosario MD Family Provider Active Dr. Elton Rosario MD Primary Care Provider Active Team Status: Inactive Member Role Status Dates Dr. Elton Rosario MD Primary Care Provider Active Elton ACHARYA MD Attending Provider Active Team Status: Inactive Member Role Status Dates Dr. Elton Rosario MD Primary Care Provider, Referring P rovider Active Dr. Mary Lamb DO Attending Provider Activ e Team Status: Inactive Member Role Status Dates Dr. Elton Rosario MD Primary Care Provide r, Attending Provider, Referring Provider Active Team Status: Inactive Member Role Status Dates Dr. Elton Rosario MD Primary Care Provider Active Dr. Mary Lamb DO Attending Provider, Refe rring Provider Active Team Status: Active Member Role Status Dates Dr. Elton Rosario MD Primary Care Provider Active Dr. Mary Lamb DO Attending Provider, Referring Provider, Other Provider Active Team Status: Active Member Role/Relationship Status Dates Dr. Elton Rosario MD Family Provider Active Dr. Elton Rosario MD Primary Care Provider Active Team Status: Inactive Member Role/Relationship Status Dates Dr. Elton Rosario MD Primary Care Provider Active Start: November 28, 2024 End: November 28, 2024 Dr. Elton Rosario MD Referring Provider Active St art: November 28, 2024 End: November 28, 2024 Dr. Mary Lamb DO Attending Provider Activ e Start: November 28, 2024 End: November 28, 2024 Team Status: Active Member Role/Relationship Status Dates Dr. Elton Rosario MD Primary Care Provider Active Team Status: Inactive Member Role/Relationship Status Dates Dr. Elton Rosario MD Primary Care Provider Active Start: November 28, 2024 End: November 28, 2024 Dr. Mary Lamb DO Attending Provider Activ e Start: November 28, 2024 End: November 28, 2024 Team Status: Inactive Member Role/Relationship Status Dates Dr. Elton Rosario MD Primary Care Provider Active Start: December 19, 2024 End: December 19, 2024 Dr. Mary Lamb DO Attending Provider Activ e Start: December 19, 2024 End: December 19, 2024 Dr. Mary Lamb DO Referring Provider Activ e Start: December 19, 2024 End: December 19, 2024 FOR RECORDS PERTAINING TO PATIENTS WHO ARE OR HAVE BEEN ENROLLED IN A CHEMICAL DEPENDENCY/SUBSTANCEABUSE PROGRAM, SOME INFORMATION MAY BE OMITTED. This clinical summary was aggregated from multiple sources. Caution should be exercised in using it in the provision of clinical care. This summary normalizes information from multiple sources, and as a consequence, information in this document may materially change the coding, format and clinical context of patient data. In addition, data may be omitted in some cases. CLINICAL DECISIONS SHOULD BE BASED ON THE PRIMARY CLINICAL RECORDS. [employer] [facility]. provides no warranty or guarantee of the accuracy or completeness of information in this document.
--- NOTE | 2025-03-20 10:33 | HP.PCM_ITS ---
History and Physical Date of Admission: 03/20/25 Intake Vital Signs 11/28/2508:07 03/09/2510:06 03/09/2510:07 Height 5 ft 3 in 5 ft 3 in 5 ft 3 in Weight: 151 lb 2 oz BMI 26.7 BP 111/75 Intake Visit Reasons: TRH BS Cysto Chief Complaint: TRHBS Preop Stock Lifter Required: No Is patient in pain?: No Allergies Environmental Allergies: Uncoded (pine) Allergy (Verified 03/09/25 10:06) Hives Medications ?Medication ?Instructions ?Recorded ?Confirmed ?Type NK 03/09/25 03/09/25 History Post menopausal: No PFSH Medical History Migraine headache Dysmenorrhea Menorrhagia Non-smoker Alcohol use Seasonal allergies Surgical History History of hysteroscopy (~08/24/23) S/P S/P knee surgery Family History Mother Breast cancer Aunt Ovarian cancer Father Prostate CA Grandfather CVA (cerebral vascular accident) Social History Smoking Status: Never smoker alcohol intake: current details: occasionally caffeine: Yes what type of physical activity do you participate in: walking, aerobics and weight training frequency: 5-6 times per week seatbelt use: always do you feel safe at home: Yes additional social history: - [facility] TRH BS Cysto Details: THAIS GOVEA is a 35 year old who presents for preop robotic hysterectomy exam. The patient has been using the NuvaRing for contraception and has been advised to use it continuously to reduce headaches and bleeding. She has a history of a uterine septum, which precludes the use of an intrauterine device (IUD). The patient reports a family history of breast cancer, with her mother being diagnosed at age 37. She has dense breast tissue, which reduces the sensitivity of mammograms. The patient also has a family history of ovarian cancer, with her maternal aunt diagnosed in her mid-30s. There is a discussion about the potential benefits of genetic testing for the BRCA gene. and there is a consideration BSO initially but after she thought about this and talked to her family she does not want her ovaries removed. EMB was benign. ultrasound showed the following: FINDINGS: The uterus is anteverted and is in a midline position. The uterus measures 7.8 cm x 4.1 cm x 2.3 cm. Normal uterine cervix. The endometrium measures 6 mm in thickness, and is hyperechoic. Tiny anechoic areas are seen within the endometrium. There is no demonstrated endometrial mass. Heterogeneous echotexture of the myometrium although no focal fibroid is seen. I.U.D. - The patient does not have an I.U.D. The right ovary is visualized. The right ovary measures 1.8 cm x 1.6 cm x 1.3 cm. There is no right ovarian cyst or ovarian mass. There is no visualized right adnexal mass or complex lesion. There is normal arterial and normal venous vascularity. The left ovary is visualized. The left ovary measures 2.4 cm x 2.1 cm x 1.8 cm. There is a 1.3 cm x 1.5 cm x 1.3 cm follicle in the left ovary. There is no visualized left adnexal mass or complex lesion. There is normal arterial and normal venous vascularity. There is no fluid in the cul-de-sac. The pre void volume of the bladder was 803 ml. US/Pelvic w/ Transvaginal IMPRESSION: Dominant follicle in the left ovary. Heterogeneous echotexture of the myometrium although no focal fibroid is seen. History 2 Elective abortions Hx Para 2 Spontaneous abortions Hx # Term Pregnancies Ectopic pregnancies Hx # Pregnancies Multiple births # of living children Past Pregnancies Del. Date Name GA/Weeks Outcome Route Bth Weight Gen Labor Lgth Anesthesia Del Locatn Provider FOB Unknown [place]ae[place] Unknown Nabor Coding Level of Care Code Off vis,est,level 4 Diagnoses Family history of breast cancer Z80.3 Pelvic pain R10.2 Abnormal uterine bleeding N93.9 Dysmenorrhea N94.6 Menorrhagia N92.0 Assessment and Plan Assessment and Plan (1) Family history of breast cancer: Status: Acute (2) Pelvic pain: Status: Acute (3) Abnormal uterine bleeding: Status: Acute (4) Dysmenorrhea: Status: Acute (5) Menorrhagia: Status: Acute Plan After discussing the patient's diagnosis and treatment plan options, patient wishes to proceed with surgical management. I have discussed with the patient the risks, benefits, and alternatives of the procedure which include but are not limited to risks of anesthesia, bleeding, infection, possible damage to bowel, bladder, or surrounding vasculature which could lead to additional surgery to evaluate any complications. Patient agrees to procedure and wishes to proceed. ACOG/uptodate references given for additional information regarding procedure. plan for total rovotic hysterectomy, bs cysto.
--- NOTE | 2025-03-20 10:44 | PCM.DC ---
Discharge Instructions DC O2, CPAP, BIPAP needs Home O2 Discharge instructions: No Dressing / Incision Discharge Activity: May Shower May resume sexual activity in: 8 weeks Weight Bearing Status: Full weight bearing Lifting Restrictions: 10 pounds for 2 weeks Dressing / Incision Call your doctor if your incision/area has: Continuous Slow Oozing, Sudden Increased Bleeding, Increased Pain/ Swelling, Increased Redness and Foul Smelling Discharge Call your doctor if you observe: Fever of 101 or Higher, Using more than 1 pad per hour, Shortness of breath, Chest pain and Uncontrolled pain Suture Line Care: Avoid Pulling/Pushing and Avoid Pinching/Bending Remove Dressing in: 1 week (if present) Cleanse incision/area with: Soap & Water and Keep Dressing Clean & Dry Follow Up Care Please Follow Up With: Mary Lamb DO When: Call to make an appointment with your doctor for a postop visit in 2 and 6 weeks Test Results: Test results from this visit will be discussed in further detail at your follow-up appointment, if applicable. Discharge Plan Admission Primary Reason for Your Visit: robotic hysterectomy Attending Provider: Mary Lamb Primary Care Provider: Elton Rosario Instructions Print Language: Brazilian Discharge Orders/Prescriptions Prescriptions: New ibuprofen 800 mg tablet 800 mg PO Q8H PRN (Reason: pain) Qty: 30 0RF oxycodone-acetaminophen [Percocet] 5-325 mg tablet 1 tab PO Q4H PRN (Reason: pain) 7 Days Qty: 20 0RF Referrals / Follow Up: Elton Rosario MD [Primary Care Provider, Family Practice] Disposition Disposition (needs filled in before D/C Order can be placed): Home, Self Care
--- NOTE | 2025-03-20 10:49 | PRE.ANES_ITS ---
ASA Classification* ASA Classification ASA Classification: 2 Assessment & Plan Anesthesia* Anesthesia Assessment Anesthesia Assessment: Discussed sedation and/or anesthesia options, risks, benefits, and alternatives with patient/parents/legal guardian/POA. Questions invited. The patient/parents/legal guardian/POA seems to understand and agrees to proceed with anesthesia plan. Reviewed the physical assessment, medical history, allergy history and patient home medications list prior to surgery/procedure/anesthetic and documented any changes. Performed airway and anesthesia risk assessments. Clear ensure at 0900 Anesthesia Type Anesthesia Type: General History Source History Obtained from:: Patient and Chart Anesthesia Focused Assessment* Temperature: 98.8 F Pulse Rate: 76 Blood Pressure: 113/66 Respiratory Rate: 16 Pulse Ox: 100 Oxygen Delivery Method: Room Air Airway Assessment Mouth opens: >3 cm Mallampati Score: II Teeth Condition: Intact Neck Range of motion (ROM): Full ROM Labs Anesthesia Preop lab: CBC WBC, (4.4-11.0) 6.9 K/mm3 03/09/25, 09:48 RBC, (4.2-5.4) 4.72 M/mm3 03/09/25, 09:48 Hgb, (12.0-15.0) 13.2 g/dL 03/09/25, 09:48 Hct, (37-47) 42.0 % 03/09/25, 09:48 Plt Count, (150-450) 232 K/mm3 03/09/25, 09:48 CHEMISTRY Magnesium, (1.5-2.2) 2.7 mg/dL H 03/09/25, 09:48 Creatinine, (0.55-1.02) 0.86 mg/dL 10/22/22, 10:21 POC Glucose, (74-106) 105 mg/dL Today, 10:06 TSH, (0.358-3.74) 2.55 uIU/mL 03/18/16, 11:18 COAG HCG, Quant, (<9 non-preg) 66790 mIU/mL H 01/27/16, 16:1 5 Urine Test Negative Negative Today, 09:56 Pre-Assessment Diagnosis/Proposed Procedure Planned Operative Procedure(s): TOTAL ROBOTIC HYSTERECOTMY BILATERAL SALPINGECTOMY, CYSTOSCOPY Anesthesia History Anesthesia History - data control clerk: Anesthesia History - data control clerk Hx Hospitalization No 03/06/25 11:41 Any Problems With Anesthesia No 03/06/25 11:41 Cholinesterase deficiency No 03/06/25 11:41 You/Your Family Experience No 03/06/25 11:41 fever (hyperthermia) with Relationship Recent Exposure to Contagious No 08/24/23 06:54 Disease Does patient have nerve No 03/06/25 11:41 stimulator Patient instructed to have device shut off --Does patient have Pacemaker No 03/20/25 10:03 or ICD? When Was Last Pacemaker Check QUESTION #4 FULL TEXT: You/Your Family Experience fever (hyperthermia) with Anesthesia Last Oral Intake Last Oral intake: Last Oral Intake NPO since 09:00 03/20/25 10:03 Meds taken in AM with sips of No 03/20/25 10:03 water? Meds patient instructed to take am of surgery PONV PONV - data control clerk: PONV - data control clerk Female Yes 03/06/25 11:41 HX of Motion Sickness No 03/06/25 11:41 HX of N/V After Surgery Yes 03/06/25 11:41 Non-Smoker Yes 03/06/25 11:41 Duration of Surgery greater Yes 03/06/25 11:41 than 60 minutes Number of Risk Factors 4 03/06/25 11:41 PONV Score Severe Risk 03/06/25 11:41 Height & Weight Height & Weight: Anesthesia: Height & Weight Height 5 ft 3 in 03/20/25 10:03 Weight: 68.9 kg 03/20/25 10:03 Body Mass Index (BMI) 26.9 03/20/25 10:03 Respiratory Assessment Respiratory Assessment - data control clerk: Respiratory Tract Infection Hx - data control clerk Hx Respiratory Tract Infection No 03/06/25 11:41 STOP Sleep Apnea STOP Sleep Apnea - data control clerk: STOP Sleep Apnea - data control clerk Hx Hypertension No 03/06/25 11:41 Hx Sleep Apnea No 03/06/25 11:41 CPAP BIPAP Do you snore loudly (louder No 03/06/25 11:41 than talking or can be heard Do you often feel tired/ No 03/06/25 11:41 fatigued/ sleepy during daytime? Has anyone observed you stop No 03/06/25 11:41 breathing during sleep? STOP Results Negative 03/06/25 11:41 QUESTION #5 FULL TEXT : Do you snore loudly (louder than talking or can be heard through closed doors)? 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 Specify any problems Hx of Preganancy in last 3 No 03/06/25 11:41 Months Nurse Filling Out Transfusion [email or web address] 03/06/25 11:41 & Questions: Date: 03/06/25 03/06/25 11:41 Time: 11:45 03/06/25 11:41 Patient unable to answer at this time (ie. confused, unrespo /Reproduction History /Reproductive History - data control clerk: /Reproductive Hx- data control clerk Hx Now No 03/06/25 11:41 Gestational Age (in weeks): EDC: Hx Hx Para Hx Section SAB No 03/06/25 11:41 Does the father of the baby or his family experience fever w Father of the baby Malignant Hypertension history comment Active Medications Active Medications: Current Medications Generic Name Dose Route Start Last Admin Trade Name Freq PRN Reason Stop Dose Admin Acetaminophen 1,000 mg 03/20/25 11:30 03/20/25 10:10 Acetaminophen 500 Mg Tablet PO 03/20/25 11:31 1,000 mg PREOP ONE Administration Celecoxib 400 mg 03/20/25 11:30 03/20/25 10:09 Celecoxib 200 Mg Capsule PO 03/20/25 11:31 400 mg PREOP ONE Administration Gabapentin 600 mg 03/20/25 11:30 03/20/25 10:10 Gabapentin 600 Mg Tablet PO 03/20/25 11:31 600 mg PREOP ONE Administration Lactated Ringer's 1,000 mls @ 40 mls/hr 03/20/25 11:30 03/20/25 10:11 IV 40 mls/hr .Q25H KELLEY Administration Cefazolin Sodium 2 gm/ Sodium 110 mls @ 150 mls/hr 03/20/25 11:30 Chloride IV 03/20/25 12:13 INTRAOP ONE Lactated Ringer's 1,000 mls @ 70 mls/hr 03/20/25 11:30 IV .[id number] KELLEY Metronidazole 500 mg in 100 mls @ 100 mls/hr 03/20/25 11:00 Flagyl IV 03/20/25 11:59 PREOP ONE Insulin Human Lispro 0 unit 03/20/25 11:30 Insulin Lispro 100 Unit/Ml Insuln.Pen SC 03/20/25 18:00 Q4H PRN PRN BG >/= 180, SEE PROTOCOL Protocol Ondansetron HCl 4 mg 03/20/25 11:30 Ondansetron 4 Mg/2 Ml Vial IV 03/20/25 11:31 INTRAOP ONE Phenazopyridine HCl 190 mg 03/20/25 11:30 03/20/25 10:10 Phenazopyridine 95 Mg Tablet PO 03/20/25 11:31 190 mg PREOP ONE Administration Scopolamine HBr 1 patch 03/20/25 11:30 03/20/25 10:09 Scopolamine 1mg/72hr Patch TD 03/20/25 11:31 1 patch PREOP ONE Administration PFSH Medical History Migraine headache Dysmenorrhea Menorrhagia Non-smoker Alcohol use Seasonal allergies Home Medications ?Medication ?Instructions ?Recorded ?Last Taken ?Type ibuprofen 800 mg tablet 800 mg PO Q8H PRN pain #30 t abs 03/20/25 Unknown Rx oxycodone-acetaminophen 5 mg-325 1 tab PO Q4H PRN pain 7 days #20 03/20/25 Unknown Rx mg tablet (Percocet) tabs Allergy/AdvReac Type Severity Reaction Status Date / Time Environmental Allergies: Allergy Hives Verified 03/20/25 10:02 Uncoded (pine) Family History Mother Breast cancer Aunt Ovarian cancer Father Prostate CA Grandfather CVA (cerebral vascular accident) Surgical History History of hysteroscopy (~08/24/23) S/P S/P knee surgery Social History Smoking Status: Never smoker alcohol intake: current details: occasionally caffeine: Yes what type of physical activity do you participate in: walking, aerobics and weight training frequency: 5-6 times per week seatbelt use: always do you feel safe at home: Yes additional social history: - Juan Review of Systems (Anesthesia) ROS Narrative System reviewed and no additional complaints, except as documented. Physical Exam Const alert, oriented x3 and average body habitus Resp normal respiratory effort, normal air movement and clear to auscultation bilaterally Cardio regular rate, regular rhythm and no murmurs; Negative for diaphoretic
[2025-03-20] MEDS: Cefazolin 1 GM/5 ML Vial 2 GM IV (11:10)
[2025-03-20] MEDS: Lidocaine 1% (5 ml sdv) 5 ML Vial IV (11:11)
[2025-03-20] MEDS: DiphenhydrAMINE 50 MG/ML Syringe 12.5 MG IV (11:12)
[2025-03-20] MEDS: metroNIDAZOLE 500 MG/100 ML BAG 100 MG IV (11:25)
--- NOTE | 2025-03-20 11:30 | UT_PTH ---
PATIENT: THAIS GOVEA LOC: [facility] [place] U#:[id number] AGE/SX: 35/F ROOM: RE03/20/[address]: Dr. Thais Lamb DO : 1990 BED: DIS: 03/20/2025 SPEC #: [id number] RECD: 03/20/25 13:51 STATUS: ELOY REJosé #: [id number] STARR: 03/20/25 11:[address]: Thais Lamb DEPT: SURGICAL PATHOLOGY RECD BY: Benton Chung ENTERED: 03/20/25 14:40 SP TYPE: UTERUS OTHR DR: Dr. Elton Rosario MD Tissues: A - Uterus, NOS Procedures: Surgery Specimen Level V HEADER OPERATION: ERAS, laparoscopic total robotic hysterectomy, bilateral salpingectomy PRE-OP DIAGNOSIS: Family history of breast cancer, pelvic pain, abnormal uterine bleeding, dysmenorrhea, menorrhagia TISSUE SUBMITTED: A- Uterus, cervix, bilateral fallopian tubes MICROSCOPIC DIAGNOSIS A. Uterus, fallopian tubes, total hysterectomy, bilateral salpingectomy: Cervix: Benign squamous epithelium and endocervical glandular tissue Endometrium: Inactive endometrium Bilateral fallopian tubes: Benign fallopian tubes with no pathologic change MICROSCOPIC DESCRIPTION Slides are reviewed. GROSS DESCRIPTION A. Received in formalin labeled with the patient's name and date of . Designated as uterus, cervix, bilateral fallopian tubes is a 45.8 g, 6.5 x 4.3 x 2.8 cm uterus with attached adnexa. The serosa is dixon-pink and somewhat granular with patchy, possible adhesions. The attached cervix is pink-dixon and slightly wrinkled, measuring 3.3 x 3.0; the 0.6 cm os is probe patent with surrounding, erythematous granularity. There is an undesignated suture at the 3:00 position. Mucoid containing cysts are present. The specimen is inked as follows: [id number] Opening reveals a 4.7 x 2.3 cm endometrial canal lined by dixon to light pink, granular, somewhat lush endometrium that measures up to 0.4 cm thick. Near the lower uterine segment, there is a 0.7 x 0.3 cm erythematous area of somewhat fibrotic endometrium (suspicious for scar). The myometrium is pale dixon-pink and measures up to 1.3 cm thick. Definitive lesions are not identified. The purple-red bilateral fallopian tubes are fimbriated and measure 7.8 x 0.4 cm (L) and 8.6 x 0.4 cm (R). Paratubal cysts are present, <0.1 cm to 0.5 cm. Optical Laboratory Technician sections are submitted as follows: A1: Anterior cervixA2: Posterior cervixA3: Anterior endomyometriumA4: Posterior endomyometriumA5: Left fallopian tubeA6: Right fallopian tubeA7: Fibrotic anterior endometrium (scar?), possible serosal adhesions [place] 03/20/2025 CPT:76696
[2025-03-20] MEDS: fentaNYL 100 MCG/2 ML Ampul 200 MCG IV (12:15)
--- NOTE | 2025-03-20 12:27 | PCM.OPRPT ---
Multi Select Codes Urinary/Genital Urinary/Genital CPT Codes: 54417 Cystoscopy and 10114 TLH+BS/O <250gr uterus Operative Report (Standard) Operative Information Date of Procedure: 03/20/25 Pre-Operative Diagnosis: pelvic pain, menorrhagia Post-Operative Diagnosis: pelvic pain, menorrhagia Surgery/Procedure Performed: Total robotic hysterectomy bilateral salpingectomy and cystoscopy total investigations manager: Yes Resource Management Planner: Genie Reilly Tasks completed by nurse first aid: Closing and Insert Trochanter Additional payroll and benefits assistant?: No Type of Anesthesia: General RN Documented Start/Stop Times: Operation Date: 03/20/25 11:30 Case Time Into Pre-Op 03/20/25 09:43 Out of Pre-Op 03/20/25 11:02 Anesthesia Start 03/20/25 11:06 Into Room 03/20/25 11:06 Procedure Start 03/20/25 11:26 Procedure Start Time: 11:06 Procedure Stop Time: 12:32 Select all DRAINS/GRAFTS/IMPLANTS that apply: None Estimated Blood Loss: 20cc Specimen collected: Yes Description of specimen(s) removed: Uterus tubes and cervix Description of surgery: Reason for surgery: This is a 35-year-old G2, P2 who presented to my office with history of menorrhagia and pelvic pain. The planned procedure is for a robotic hysterectomy the risks benefits and alternatives were discussed with the patient the patient had a clear understanding of the procedure and a consent form was signed. Procedure: The patient was placed in the dorsal low lithotomy position and prepped and draped in the normal sterile fashion both abdominally and in the perineum. Her legs were placed in stirrups a Cortes catheter was inserted into the urethra without difficulty. A weighted speculum was placed in the vagina and a single-tooth tenaculum was used to grasp the anterior lip of the cervix. An advincula uterine manipulator was inserted through the cervix without complication. It was then tied into place at the 2 and 10:00 locations on the cervix. Gloves were changed and attention was turned towards the abdomen. Approximately 23 cm above the pubic symphysis in the midline, and after Marcaine injection, a 8 mm incision was made. An 8 mm trocar was inserted through the laparoscope, then inserted into the abdomen under direct visualization using the laparoscope. Good abdominal placement was noted and no complications were appreciated. An air seal device was utilized to create pneumoperitoneum. At 12 cm lateral to the midline on the left and right sides 8 mm accessory ports were placed. Next a left upper quadrant 8 mm payroll and benefits assistant port site was placed. The patient was placed in steep Trendelenburg position. The robot was docked. The hysterectomy was initiated first by taking down the round ligament on each side using the vessel sealer device. The fallopian tubes were elevated and the underlying mesosalpinx was cauterized and cut using the vessel sealer device. While performing this the right adnexa was noted to have prominent blood vessels consistent with pelvic congestion syndrome. The broad ligament was then and taken down using the vessel sealer device. Next the bladder flap was taken down without complication. This was done using monopolar cautery to the level of the cervical vaginal junction. After the bladder flap was created, uterine vessels were then isolated and cauterized using the vessel sealer device and EndoShears. At this point the uterine vessels were taken down further starting from the ascending branch, dissecting along the edges of the cervix to the level of the cervical vaginal junction with hemostasis appreciated. The cervical vaginal junction was then using monopolar cautery in a circumferential pattern across the superior aspect of the cervix. The specimen was delivered through the vagina and sent to pathology. The remaining vaginal cuff was then closed using a V lock suture. This was performed in a running technique. Excellent hemostasis was obtained and good closure was noted. Irrigation was then performed. All operative sites were noted to be hemostatic. A cystoscopy was performed with a 70 degree cystoscope through the urethra into the bladder without complication. The bladder was instilled with approximately 250 cc of normal saline. Intraoperative images were made. Ureteral orifices and jets were identified. No suture material was appreciated in the bladder. The bladder was then drained and cystoscope was removed. The abdominal cavity was again examined using the laparoscope after the robot was undocked. All operative sites were noted to be hemostatic. The trochars were removed under direct visualization without complication and pneumoperitoneum was reduced. At this point the skin was then closed using 4-0 Monocryl subcuticular stitch and sealed with surgical glue. The patient tolerated the procedure well sponge lap and needle counts were correct x2 the patient was taken to the recovery room in stable condition. Surgical Findings: Findings: 8 cm size uterus, normal appearing ovaries and tubes. On exploration of the abdominal cavity the uterus, adnexa, bowel, and liver were found to be normal. There was noted to be prominent blood vessels on the right adnexa possibly consistent with pelvic congestion syndrome. Cystoscopy showed no evidence of leaking at approximately 250 cc of normal saline, positive ureteral orifices and jet flow are seen and no suture material was appreciated in the bladder Complications Complications: No Admit VTE Documentation VTE Mechan Device Prophylaxis: SCD's VTE Pharm Prophylaxis ordered?: No Reason prophylaxis not ordered: Treatment Not Indicated
--- NOTE | 2025-03-20 12:50 | PCM.POST.ANE ---
Anesthesia: Postop Eval I Current Vital Signs Temperature: 98 F Pulse Rate: 88 Blood Pressure: 123/67 Respiratory Rate: 16 Pulse Ox: 97 Oxygen Delivery Method: Room Air Assessment Airway patent: Yes Spontaneous unlabored respirations: Yes Mental status: Awake and Calm nausea: No Vomiting: No Anesthesia Complication: No Fluid Hydration Crystalloid volume administer (ml): 800 Total IV fluid infused: 800 Progress Note Anesthesia document: Postop Eval 1 completed: Yes
--- NOTE | 2025-03-20 13:40 | POSTOPAN2_ITS ---
Anesthesia Postop Eval I Sum Postop Eval Completion status Anesthesia document: Postop Eval 1 completed: Yes Anesthesia Postop Eval I Summary Anesthesia Postop Eval I Summary: Anesthesia Postop Eval I: Assessment Summary Airway patent Yes 03/20/25 12:50 MIRROR FABRICATION [email or web address] Spontaneous unlabored Yes 03/20/25 12:50 MIRROR FABRICATION SUPERVISOR.[email or web address] respirations Mental status Awake,Calm 03/20/25 12:50 MIRROR FABRICATION SUPERVISOR.[email or web address] nausea No 03/20/25 12:50 MIRROR FABRICATION SUPERVISOR.[email or web address] Vomiting No 03/20/25 12:50 MIRROR FABRICATION SUPERVISOR.[email or web address] Anesthesia Postop Eval I: Fluid Summary Crystalloid volume administer 800 03/20/25 12:50 MIRROR FABRICATION SUPERVISOR.[email or web address] (ml) Colloids volume administered ( ml) Blood Product volume administered (ml) Total IV fluid infused 800 03/20/25 12:50 MIRROR FABRICATION SUPERVISOR.[email or web address] Anesthesia Postop Eval I: Summary Notes Anesthesia Complication No 03/20/25 12:50 MIRROR FABRICATION SUPERVISOR.[email or web address] Anesthesia Complication Comment: Post-operative progress note Anesthesia: Postop Eval II Evaluation Mental status: Awake Pain Level: 0 nausea: No Vomiting: No Complications Anesthesia Complication: No
--- NOTE | 2025-03-20 13:40 | PCM.POSTANE2 ---
Anesthesia Postop Eval I Sum Postop Eval Completion status Anesthesia document: Postop Eval 1 completed: Yes Anesthesia Postop Eval I Summary Anesthesia Postop Eval I Summary: Anesthesia Postop Eval I: Assessment Summary Airway patent Yes 03/20/25 12:50 SENIOR [email or web address] Spontaneous unlabored Yes 03/20/25 12:50 SENIOR [email or web address].[email or web address] respirations Mental status Awake,Calm 03/20/25 12:50 SENIOR [email or web address] nausea No 03/20/25 12:50 SENIOR [email or web address] Vomiting No 03/20/25 12:50 SENIOR [email or web address] Anesthesia Postop Eval I: Fluid Summary Crystalloid volume administer 800 03/20/25 12:50 SENIOR [email or web address] (ml) Colloids volume administered ( ml) Blood Product volume administered (ml) Total IV fluid infused 800 03/20/25 12:50 SENIOR [email or web address].KATINAOBBina Anesthesia Postop Eval I: Summary Notes Anesthesia Complication No 03/20/25 12:50 SENIOR [email or web address].[email or web address] Anesthesia Complication Comment: Post-operative progress note Anesthesia: Postop Eval II Evaluation Mental status: Awake Pain Level: 0 nausea: No Vomiting: No Complications Anesthesia Complication: No
[2025-03-20] MEDS: HYDROcodone Bitartrate/Apap 5/325 Tablet PO (15:58)
== END 2025-03-20 17:05 | disposition home or self-care (01) ==
LOC: SDC 09:40 → AC 09:42
PROVIDERS: PCP Family Medicine; Referring Provider Obstetrics & Gynecology; Visit Provider Obstetrics & Gynecology
PROC: 0UT90ZZ Resection of Uterus, Open Approach (ICD-10-PCS; CPT 58571; principal; 2025-03-20 11:10)
DX: N92.0 Excessive and frequent menstruation with regular cycle (principal); N93.9 Abnormal uterine and vaginal bleeding, unspecified; N94.6 Dysmenorrhea, unspecified; R10.20 Pelvic and perineal pain unspecified side
CPT/HCPCS: 58571; S2900; 00840; 36415; 81025; 82962; 83735; 85027; 86850; 86900; 86901; 88307; J2405